=== PATIENT | female | born 2000 | race Caucasian/White ===

== ENCOUNTER 2020-12-07 19:24 | Emergency (ER) | payer SELFPAY ==
[2020-12-07 19:39] VITALS: BP 102/62; PULSE 66; RESP 18; TEMP 37.1; O2SAT 97; BMI 25.9
--- NOTE | 2020-12-07 19:54 | USR_ITS ---
PROCEDURE INFORMATION: Exam: US Abdomen, Limited; Right Upper Quadrant Exam date and time: 12/07/2020 7:54 PM Age: 19 years old Clinical indication: Abdominal pain; Acute; Additional info: Abd pain TECHNIQUE: Imaging protocol: US abdomen. Real time ultrasound with image documentation. Limited exam focused on the right upper quadrant. COMPARISON: No relevant prior studies available. FINDINGS: Liver: The liver is of normal echogenicity measuring 13.8 cm. Gallbladder: Normal. No gallstones. There is no gallbladder wall thickening. Common bile duct: Normal. No stones. No dilation. Pancreas: Visualized pancreas is unremarkable. Right kidney: Normal. No mass. No hydronephrosis. Portal venous: The main portal vein is patent with hepatopetal flow. US/US gall bladder [id number] IMPRESSION: No acute finding.
--- NOTE | 2020-12-07 19:58 | W.ED.ABDPA2 ---
HPI - Abdominal Pain General: Chief Complaint: Abdominal Pain Stated Complaint: Possible Gall Bladder Time Seen by Provider: 12/07/20 19:25 Source: patient Mode of arrival: ambulatory Limitations: no limitations History of Present Illness: HPI narrative: 19-year-old female states that she is been having epigastric right upper quadrant pain since last night. States she ate [employer] last night and has been having the pain since then. States pain sharp in nature and rates it an 8 out of 10. Denies any radiation of her pain. She had no nausea or vomiting. She has no history of gastritis or gallbladder issues in the past. She has had no surgeries before Associated Symptoms: Denies chills, dysuria and fever(s) Related Data: Date of Last Menstrual Period: 11/17/20 Review of Systems Const: Denies: fever(s), chills, body aches or change in appetite Eyes: Denies: blurry vision or eye discomfort ENMT: Denies: throat pain or dental pain Card: Denies: chest pain Resp: Denies: dyspnea GI: Reports: abdominal pain : Denies: dysuria Musc: Denies: neck pain or back pain Skin/Breast: Denies: rash Neuro: Denies: headache(s) Psych: Denies: depression Constantin/Lymph: Denies: easy bruising All/Imm: Denies: urticaria PENDING SALE TO [facility] Female Reproductive History: Date of last menstrual period: 11/17/20 Physical Exam Const: COMMON NORMALS: no acute distress, patient oriented x3 and healthy appearing HENMT: COMMON NORMALS: normocephalic and atraumatic HEAD & SCALP: normocephalic and atraumatic Eye: COMMON NORMALS: Equal, round and reactive pupils present and EOMs intact bilaterally PUPIL: Yes Equal, round and reactive pupils present Neck/C-Spine: COMMON NORMALS: full ROM and supple Chest: COMMONS NORMALS: normal inspection of the chest and normal palpation of entire chest wall Resp: COMMON NORMALS: normal respiratory effort, No retractions, No use of accessory muscles and clear to auscultation bilaterally AUSCULTATION: clear to auscultation bilaterally Cardio: COMMON NORMALS: regular rate, regular rhythm and No murmurs present (Cardio) RATE: regular rate RHYTHM: regular rhythm GI: COMMON NORMALS: Normal to inspection, nondistended, normoactive bowel sounds present, Soft to palpation and no masses PALPATION: Yes Soft to palpation OTHER: epigastric and ruq tenderness Extremity: COMMON NORMALS: normal to inspection and full ROM Neuro: COMMON NORMALS: patient oriented x3, moves all extremities and no focal motor deficits Psych: COMMON NORMALS: mental status grossly normal, Normal thought process present and cooperative THOUGHT PROCESS: Normal thought process present Skin: COMMON NORMALS: no rashes or lesions noted and no wounds GENERAL SKIN EXAM: no rashes or lesions noted Course Vital Signs: Vital signs: Vital Signs Temperature 98.8 F 12/07/20 19:39 Pulse Rate 63 12/07/20 21:47 Respiratory Rate 18 12/07/20 21:47 Blood Pressure 98/56 12/07/20 21:47 Pulse Oximetry 98 12/07/20 21:47 MDM - Abdominal Pain MDM Narrative: Medical decision making narrative: Patient presents with abdominal pain that is likely a gastritis. Patient's blood work and ultrasound here are negative. Vomiting exam at discharge is benign. We will start her on Protonix she is to follow-up with PCP in 2 to 4 days return if worsening. She has no signs of acute surgical abdomen on exam. Lab Data: Labs: Lab Results 12/07/20 12/07/20 12/07/20 Range/Units 20:06 20:06 20:51 WBC 11.7 (4.5-13.0) 10^3/ uL RBC 3.90 L (4.1-5.3) 10^6/u L Hgb 9.3 L (11.5-15.3) g/dL Hct 30.7 L (37.0-47.0) % MCV 78.7 L (81-99) fL MCH 23.8 L (28.0-34.0) pg MCHC 30.3 (30.0-36.0) g/dL RDW 15.2 H (12.1-15.1) % Plt Count 378 (130-400) 10^3/c mm MPV 10.5 H (7.4-10.4) fL Neut % (Auto) 77.0 % Lymph % (Auto) 17.1 % [place] % (Auto) 4.6 % Eos % (Auto) 0.7 % Baso % (Auto) 0.3 % Neut # (Auto) 9.00 H (1.8-8.0) 10^3/u L Lymph # (Auto) 2.0 (1.5-6.5) 10^3/u L [place] # (Auto) 0.5 (0.2-0.9) 10^3/u L Eos # (Auto) 0.1 (0.0-0.8) 10^3/u L Baso # (Auto) 0.0 (0.0-0.1) 10^3/u L Nucleated RBC % (a uto) 0 % Nucleated RBCs # 0.0 /100WBC Sodium 138 (136-145) mmol/L Potassium 4.0 (3.5-5.1) mmol/L Chloride 105 (98-107) mmol/L Carbon Dioxide 21 L (22-29) mmol/L Anion Gap 16.0 (5-19) BUN 7 (6-20) mg/dL Creatinine 0.7 (0.5-0.9) mg/dL GFR Calculation 107.8 (90-130) mL/min Glucose 85 (65-115) mg/dL Calculated Osmolal ity 283 L (285-295) mOsm/k g Calcium 8.6 (8.5-10.5) mg/dL Total Bilirubin 0.4 (0.15-1.2) mg/dL AST 15 (0-32) U/L ALT 11 (0-33) U/L Alkaline Phosphata se 81 (35-105) IU/L Total Protein 6.9 (6.6-8.7) g/dL Albumin 4.2 (3.5-5.2) g/dL Globulin 2.7 (1.3-4.6) g/dL Lipase 14 (13-60) U/L HCG, Qual Negative (Negative) Urine Color (Yellow) Urine Appearance (CLEAR) Urine pH (5-7) Ur Specific Gravit y (1.005-1.030) Urine Protein (Negative) Urine Glucose (UA) (Normal) Urine Ketones (Negative) Urine Blood (Negative) Urine Nitrate (Negative) Urine Bilirubin (Negative) Prot Sulfosalicyli c Acd (Negative) Urine Urobilinogen (Negative) mg/dL Ur Leukocyte Chantelle ase (Negative) Urine RBC (0-2) /hpf Urine WBC (0-5) /hpf Ur Squamous Epith Cells (0-5) /hpf Amorphous Sediment Urine Bacteria (NONE) /hpf Urine Mucus /hpf 12/07/20 Range/Units 20:51 WBC (4.5-13.0) 10^3/ uL RBC (4.1-5.3) 10^6/u L Hgb (11.5-15.3) g/dL Hct (37.0-47.0) % MCV (81-99) fL MCH (28.0-34.0) pg MCHC (30.0-36.0) g/dL RDW (12.1-15.1) % Plt Count (130-400) 10^3/c mm MPV (7.4-10.4) fL Neut % (Auto) % Lymph % (Auto) % [place] % (Auto) % Eos % (Auto) % Baso % (Auto) % Neut # (Auto) (1.8-8.0) 10^3/u L Lymph # (Auto) (1.5-6.5) 10^3/u L [place] # (Auto) (0.2-0.9) 10^3/u L Eos # (Auto) (0.0-0.8) 10^3/u L Baso # (Auto) (0.0-0.1) 10^3/u L Nucleated RBC % (a uto) % Nucleated RBCs # /100WBC Sodium (136-145) mmol/L Potassium (3.5-5.1) mmol/L Chloride (98-107) mmol/L Carbon Dioxide (22-29) mmol/L Anion Gap (5-19) BUN (6-20) mg/dL Creatinine (0.5-0.9) mg/dL GFR Calculation (90-130) mL/min Glucose (65-115) mg/dL Calculated Osmolal ity (285-295) mOsm/k g Calcium (8.5-10.5) mg/dL Total Bilirubin (0.15-1.2) mg/dL AST (0-32) U/L ALT (0-33) U/L Alkaline Phosphata se (35-105) IU/L Total Protein (6.6-8.7) g/dL Albumin (3.5-5.2) g/dL Globulin (1.3-4.6) g/dL Lipase (13-60) U/L HCG, Qual (Negative) Urine Color Yellow (Yellow) Urine Appearance Sl hazy (CLEAR) Urine pH 8 H (5-7) Ur Specific Gravit y 1.005 (1.005-1.030) Urine Protein Neg (Negative) Urine Glucose (UA) Norm (Normal) Urine Ketones 1+ H (Negative) Urine Blood 3+ H (Negative) Urine Nitrate Negative (Negative) Urine Bilirubin Neg (Negative) Prot Sulfosalicyli c Acd Negative (Negative) Urine Urobilinogen Norm (Negative) mg/dL Ur Leukocyte Chantelle ase Trace H (Negative) Urine RBC 10-15 H (0-2) /hpf Urine WBC 40-55 H (0-5) /hpf Ur Squamous Epith Cells 0-4 H (0-5) /hpf Amorphous Sediment Not Reportable Urine Bacteria Trace (NONE) /hpf Urine Mucus Trace /hpf Imaging Data ^: US: Attestation: I personally reviewed and interpreted this imaging study as follows: Radiologist's impression: [address] [address] Ultrasound Report Signed Patient: Leidy Montes Unit #: [id number] : 2000 Age/Sex: 19 / F ADM Date: 12/07/20 Loc: ER Room/Bed: Attending Dr: Ordering Provider/Ordering MD: Ghazal Garcia MD Date of Service: 12/07/20 Procedure(s): US gall bladder 18874 Accession Number(s): [id number] Report Number: [id number] PROCEDURE INFORMATION: Exam: US Abdomen, Limited; Right Upper Quadrant Exam date and time: 12/07/2020 7:54 PM Age: 19 years old Clinical indication: Abdominal pain; Acute; Additional info: Abd pain TECHNIQUE: Imaging protocol: US abdomen. Real time ultrasound with image documentation. Limited exam focused on the right upper quadrant. COMPARISON: No relevant prior studies available. FINDINGS: Liver: The liver is of normal echogenicity measuring 13.8 cm. Gallbladder: Normal. No gallstones. There is no gallbladder wall thickening. Common bile duct: Normal. No stones. No dilation. Pancreas: Visualized pancreas is unremarkable. Right kidney: Normal. No mass. No hydronephrosis. Portal venous: The main portal vein is patent with hepatopetal flow. US/US gall bladder [id number] IMPRESSION: No acute finding. Discharge Plan Discharge Patient Disposition: Home Clinical Impression: Abdominal pain Qualifiers: Abdominal location: epigastric Qualified Code(s): R10.13 - Epigastric pain Condition: Stable Prescriptions: New Protonix 40 mg tablet,delayed release (DR/EC) 40 mg PO DAILY Qty: 60 RF: 0 No Action Pepcid 20 mg Tablet 20 mg PO BID RF: 0 Discharge Orders: Discharge ED (Routine); Ordered 12/07/20 Ordered By: Ghazal Garcia Discharge Diet: Advance as tolerated Discharge Activity: Resume usual activity Patient Instructions: Abdominal Pain (ED) Coding Level of Care Code ED Credit Risk Associate for Katherine Fwd Exam Comprehensive
[2020-12-07 20:16] LABS: Basophils % 0.3 %; Eosinophils # 0.1 10^3/uL (0.0-0.8); Eosinophils % 0.7 %; Hematocrit 30.7 % (37.0-47.0); Hemoglobin 9.3 g/dL (11.5-15.3); Lymphocytes % 17.1 %; Mean Corpuscular HGB Conc 30.3 g/dL (30.0-36.0); Mean Corpuscular Hemoglobin 23.8 pg (28.0-34.0); Mean Corpuscular Volume 78.7 fL (81-99); Mean Platelet Volume 10.5 fL (7.4-10.4); Monocytes # 0.5 10^3/uL (0.2-0.9); Monocytes % 4.6 %; Nucleated Red Blood Cells % 0 %; Platelet Count 378 10^3/cmm (130-400); Red Cell Distribution Width 15.2 % (12.1-15.1); White Blood Count 11.7 10^3/uL (4.5-13.0)
[2020-12-07] MEDS: morphine 4 mg/mL SDV 1 mL IVP (20:29)
[2020-12-07] MEDS: ondansetron 2 mg/ML SDV 2 mL 4 MG IVP (20:29)
[2020-12-07 20:36] LABS: Alanine Aminotransferase 11 U/L (0-33); Albumin Level 4.2 g/dL (3.5-5.2); Alkaline Phosphatase 81 IU/L (35-105); Aspartate Amino Transferase 15 U/L (0-32); Blood Urea Nitrogen 7 mg/dL (6-20); Calcium 8.6 mg/dL (8.5-10.5); Carbon Dioxide 21 mmol/L (22-29); Chloride 105 mmol/L (98-107); Globulin 2.7 g/dL (1.3-4.6); Glomerular Filtration Rate 107.8 mL/min (90-130); Glucose 85 mg/dL (65-115); Lipase 14 U/L (13-60); Osmolality Calculated 283 mOsm/kg (285-295); Sodium 138 mmol/L (136-145); Total Bilirubin 0.4 mg/dL (0.15-1.2); Total Protein 6.9 g/dL (6.6-8.7)
[2020-12-07 21:08] VITALS: PULSE 53; RESP 17; O2SAT 98
[2020-12-07 21:18] LABS: HCG Qualitative Urine. Negative (Negative)
[2020-12-07 21:26] LABS: Urine Appearance SL Hazy (CLEAR); Urine Color Yellow (Yellow)
[2020-12-07 21:27] LABS: Add Urine Culture? Yes; Add Urine Microscopic? YES; Bacteria Urine TRACE /hpf; Bilirubin Urine Neg (Negative); Blood Urine 3+ (Negative); Glucose Urine UA Norm (Normal); Ketones Urine 1+ (Negative); Leukocyte Esterase Urine Trace (Negative); Mucus Urine TRACE /hpf; Nitrate Urine Negative (Negative); Protein Urine Neg (Negative); Specific Gravity, Urine 1.005 (1.005-1.030); Squamous Epithelial Cell Urine 0-4 /hpf (0-5); Urobilinogen Urine Norm (Negative); WBC Urine 40-55 /hpf (0-5); pH Urine 8 (5-7)
[2020-12-07 21:47] VITALS: BP 98/56; PULSE 63; RESP 18; O2SAT 98
[2020-12-07 21:53] LABS: Sulfosalicylic Acid Urine Negative (Negative)
== END 2020-12-07 21:47 | disposition home or self-care (01) ==
PROVIDERS: Emergency Provider Emergency Medicine
DX: R10.13 Epigastric pain (principal)
CPT/HCPCS: 76705; 80053; 81001; 81025; 83690; 85025; 87077; 87086; 87186; 96374; 96375; 99283; J2270; J2405

== ENCOUNTER 2022-10-02 15:36 | Outpatient (CLI) | payer MEDICAID, SELFPAY ==
--- NOTE | 2022-10-02 | US_ITS ---
WS: [id number] EARLY OBSTETRICAL ULTRASOUND (<14 WEEKS). HISTORY: ENCOUNTER FOR SUPERVISION OF NORMAL FIRST , <14 WKS COMPARISON: None available. Single intrauterine gestational sac is identified. Cardiac activity at 141 BPM. [place]-rump length roger sures 6.2 cm which corresponds to a gestation of 12w5d. Normal-appearing yolk sac and amnion demonstr ated. No subchorionic hemorrhage. No free fluid. LEFT ovary is normal. RIGHT ovary is not identified. There is a small cystic area in the posterior uterine wall which may be developing placenta. US/US OB <= 14 weeks fetus [id number] IMPRESSION: 1. Single intrauterine gestation of 12 weeks 5 days with EDC of 04/11/2023. 2. Normal cardiac activity.
== END 2022-10-02 15:37 | disposition home or self-care (01) ==
PROVIDERS: PCP Family Medicine; Visit Provider Family Medicine
DX: Z34.91 Encounter for supervision of normal pregnancy, unspecified, first trimester (principal); Z3A.12 12 weeks gestation of pregnancy
CPT/HCPCS: 76801

== ENCOUNTER 2022-11-13 12:46 | Outpatient (CLI) | payer MEDICAID, SELFPAY ==
--- NOTE | 2022-11-13 12:57 | US_ITS ---
WS: [id number] ULTRASOUND OB COMPLETE TECHNIQUE: Complete ultrasound. CLINICAL INFORMATION: ANATOMY CHECK COMPARISON: 10/02/22 FINDINGS: Cervix appears long and closed 3.32cm. Single interuterine gestation is identified with variable presentation. Placenta is anterior. Placenta grade 0. Normal amniotic fluid volume. cardiac activity: 138 BPM. AGA: 18w5d BRADLY by ultrasound: 04/11/2023 Estimated weight: 256 g; 0 lbs. 9 oz. BDP: 4.1 cm = 18w3d HC: 15.8 cm = 18w5d AC: 13.0 cm = 18w3d FEMUR LENGTH: 3.0 cm = 19w1d Anatomic survey: Anatomic survey is normal. Normal stomach. Kidneys and bladder are normal. Normal 3 vessel cord. Norm al 3 vessel cord insertion. Normal 4 chamber heart and outflow tracts. Normal spine. Intracranial con tents are normal. Normal posterior fossa and cisterna magna. US/US OB >= 14 weeks fetus [id number] IMPRESSION: 1. Single intrauterine with visualized cardiac activity. AGA 18w5d w ith BRADLY 04/11/2023. 2. Placenta is anterior. No evidence of abruption or previa. 3. anatomic survey is normal. 4. Normal amniotic fluid volume.
== END 2022-11-13 12:47 | disposition home or self-care (01) ==
PROVIDERS: PCP Family Medicine; Visit Provider Family Medicine
DX: Z34.02 Encounter for supervision of normal first pregnancy, second trimester (principal); Z3A.18 18 weeks gestation of pregnancy
CPT/HCPCS: 76805

== ENCOUNTER 2023-04-06 01:10 | Inpatient (IN) | payer MEDICAID, SELFPAY ==
[2023-04-05] VITALS (12 sets, daily range): BP systolic 125–148; BP diastolic 78–88; PULSE 67–88; RESP 18; TEMP 36.7; BMI 34.7
[2023-04-05 22:06] LABS: Basophils % 0.2 %; Eosinophils # 0.1 10^3/uL (0.0-0.8); Eosinophils % 0.7 %; Hematocrit 25.5 % (36-47); Lymphocytes # 2.1 10^3/uL (0.8-4.8); Lymphocytes % 18.2 %; Mean Corpuscular HGB Conc 27.8 g/dL (30-55); Mean Corpuscular Hemoglobin 19.8 pg (27-33); Mean Corpuscular Volume 71.2 fl (85-98); Mean Platelet Volume 11.8 fL (7.4-10.4); Monocytes # 0.5 10^3/uL (0.2-0.9); Monocytes % 4.5 %; Neutrophils # 8.57 10^3/uL (1.8-7.7); Neutrophils % 75.3 %; Nucleated Red Blood Cells # 0.1 /100WBC; Nucleated Red Blood Cells % 1.1 %; Platelet Count 260 10^3/cmm (157-399); Red Blood Count 3.58 10^6/uL (3.85-5.65); White Blood Count 11.38 10^3/uL (3.29-11.43)
[2023-04-05] MEDS: dextrose 5%-lactated ringers 1,000 ML 125 ML IV (23:08)
[2023-04-05] MEDS: oxytocin 30 UNIT/500 ML BAG IV (23:29)
[2023-04-06] VITALS (112 sets, daily range): BP systolic 109–170; BP diastolic 59–102; PULSE 57–104; TEMP 36.4–37.4; O2SAT 99–100
[2023-04-06 01:18] LABS: Amphetamines Screen Urine Negative (Negative); Barbiturates Screen Urine Negative (Negative); Benzodiazepines Screen Urine Negative (Negative); Cocaine Screen Urine Negative (Negative); Opiate Screen Urine Negative (Negative); PCP Screen Urine Negative (Negative); THC Screen Urine Negative (Negative)
[2023-04-06] MEDS: lactated ringers 1,000 ML 999 ML IV (04:01)
--- NOTE | 2023-04-06 05:44 | ANES.PREANE2 ---
Pre-Anesthetic Assessment Height/Weight: Height 1.68 m Weight 97.522 kg Temp Pulse Resp BP Pulse Ox O2 Del Method 98.0 F 67 18 137/72 100 Room Air 04/05/23 21:29 04/06/23 05:41 04/05/23 21:29 04/06/23 05:41 04/06/23 05:38 04/05/23 19:56 Familial anesthetic complications: none Was Beta Ros taken within 24 hours: N/A Was Clonidine taken within 24 hours: N/A Social No alcohol and No tobacco Exam alert, oriented x 3, clear to auscultation bilaterally and regular rate & rhythm Airway Submandibular: within normal limits Cervical ROM: within normal limits Mallampati: Class II Dentition: full History/ROS No significant history except as noted Anesthetic Plan ASA status: 2 Anesthesia: Regional (specify below) (Labor Epidural) Medications/Allergies Allergies Allergy/AdvReac Type Severity Reaction Status Date / Time mushroom Allergy ALGY-Anaphy Verified 04/05/23 21:45 laxis Current Medications Generic Name Dose Route Start Last Admin Trade Name Freq PRN Reason Stop Dose Admin Dextrose/Lactated Ringer's 1,000 mls @ 125 mls/hr 04/05/23 21:30 04/06/23 05:11 Dextrose 5%-Lactated Ringers IV 125 mls/hr .Q8H SYLWIA Infusion Oxytocin 30 unit in 500 mls @ 1 mls/hr 04/05/23 21:45 04/06/23 03:35 Pitocin IV 5 milliunit/min .Q24H SYLWIA 5 mls/hr Titration Protocol 1 MILLIUNIT/MIN Lactated Ringer's 1,000 mls @ 999 mls/hr 04/06/23 03:58 04/06/23 04:01 Lactated Ringers IV 999 mls/hr .Q1H1M PRN Administration See label comments PFSH Anesthesia Female Reproductive History Date of last menstrual period: 07/11/22 : 1 Data Anesthesia 04/05/23 21:58 Short CBC 04/05/23 Range/Units 21:58 WBC 11.38 (3.29-11.43) 10^3/uL Hgb 7.10 L (11.27-16.99) g/dL Hct 25.5 L (36-47) % MCV 71.2 L (85-98) fl Plt Count 260 (157-399) 10^3/cmm Neut % (Auto) 75.3 % Neut # (Auto) 8.57 H (1.8-7.7) 10^3/uL Blood Bank 04/05/23 21:58 Blood Type O Positive Rho(D) Type Rh positive Antibody Screen Negative Cardiac Studies: No Data to Display Anesthesia Procedures Epidural Time Out Performed: Yes Consents Signed: Procedure Consent Consent: requested by attending/covering physician, from patient, risks and benefits reviewed and patient agrees to proceed Lumbar Level: L3-L4 Epidural position: sitting Epidural procedure: sterile prep of area, 1% lidocaine to numb the area, 18 g needle, neg for paresthesia, test dose given, 1.5% xylocaine 1:200k epi (3mls), placed PCEA, no systemic response, sterile dressing applied and 0.2% Ropiavacaine @ mls/hr (10) Additional Comments: ALEXANDRU at 6cm, cath at 10cm, bolused 5mls of 2% lido
[2023-04-06] MEDS: ROPivacaine syringe 100 MG/50 ML SYRINGE 10 MG EPIDURAL ×4 (05:49→18:12)
[2023-04-06] MEDS: dextrose 5%-lactated ringers 1,000 ML 116 ML IV (08:48)
[2023-04-06] MEDS: dextrose 5%-lactated ringers 1,000 ML 107 ML IV (17:50)
--- NOTE | 2023-04-06 18:55 | PC.NURSE ---
Dressing reinforced with tegaderm at this time.
[2023-04-06] MEDS: miSOPROStol 200 mcg Tablet 800 MCG PR (21:42)
[2023-04-06] MEDS: oxytocin 30 UNIT/500 ML BAG 600 UNIT IV (21:56)
--- NOTE | 2023-04-06 22:07 | PM.OPHPUD ---
Labor & Delivery H&P Update Date of Procedure: April 06, 2023 Date H&P Performed: 04/03/23 Admission Diagnosis: IUP at 39 weeks 2 days gestation Primary indication for procedure: Pt requested induction Planned procedure: Induction of labor and delivery
--- NOTE | 2023-04-06 22:10 | P.PCNOB_ITS ---
Delivery Note: Date of delivery: April 06, 2023 Procedure: Normal spontaneous vaginal delivery Pre-Delivery Course: The patient had routine care at [facility]. Blood type O+ antibody negative, hepatitis B nonreactive hepatitis C nonreactive, HIV nonreactive, rubella immune, GC chlamydia negative, RPR nonreactive, she passed her glucose tolerance test, she was GBS negative. Delivery: This is a 22-year-old G1, P0 at 39 weeks 2 days gestation who is here for a requested induction. Her cervix was favorable and she was started on low-dose Pitocin. She received an epidural for pain management. She had artificial rupture of membranes. She had a normal spontaneous vaginal delivery of a viable male infant weight 3680 g, 8 pounds 2 ounces, Apgars 8 and 9 over an intact perineum. The was suctioned at delivery and placed on the mother's chest. The cord was clamped and cut. Cord blood was obtained. The placenta was delivered grossly intact and normal to inspection. There was a first-degree vaginal laceration on the right that was sutured using 3-0 chromic. There was a first-degree labia minora laceration that was sutured on the left. Estimated blood loss 250 mL. Mother was doing well after delivery. Coding Level of Care Code Acute Code for Chg Fwd Diagnoses
[2023-04-06] MEDS: benzocaine-menthol 78 gm Canister 1 SPRAY TOPICAL (23:41)
[2023-04-06] MEDS: ibuprofen 800 mg tablet PO (23:41)
[2023-04-07] VITALS (8 sets, daily range): BP systolic 123–164; BP diastolic 70–93; PULSE 70–90; RESP 14–18; TEMP 36.6–36.8; O2SAT 98–100
--- NOTE | 2023-04-07 06:08 | ANE.PACU2 ---
Inpatient post-anesthesia follow up: Airway intact: Yes Vital signs: Temperature 99.1 F Pulse Rate 88 Respiratory Rate 18 Blood Pressure 153/80 Pulse Oximetry 99 Oxygen Delivery Me thod Room Air Oxygen Flow Rate Fraction of Inspir ed Oxygen Hydration adequate: Yes Nausea and vomiting: No Pain level: 2 Mental status: Baseline Additional Comments: Anes start 04/06/23 0500 Anes end 04/06/23 1054
[2023-04-07] MEDS: prenatal vitamin Capsule 1 CAP PO (08:23)
[2023-04-07] MEDS: docusate sodium 100 mg Capsule PO ×2 (08:23→20:20)
[2023-04-07] MEDS: ferrous sulfate EC 325 mg Tablet PO (08:23)
[2023-04-07] MEDS: ibuprofen 800 mg tablet PO ×3 (08:23→20:20)
[2023-04-07 09:45] LABS: Hematocrit 23.5 % (36-47); Mean Corpuscular HGB Conc 28.1 g/dL (30-55); Mean Corpuscular Hemoglobin 19.9 pg (27-33); Mean Platelet Volume 11.6 fL (7.4-10.4); Platelet Count 241 10^3/cmm (157-399); Red Blood Count 3.31 10^6/uL (3.85-5.65); White Blood Count 15.94 10^3/uL (3.29-11.43)
--- NOTE | 2023-04-07 18:42 | P.PN_ITS ---
Subjective Subjective: Mother states she is doing well. She states that her bleeding has decreased a lot. Vitals/I&O/Wt Last Vital Signs Temp 98.0 F 04/07/23 16:44 Pulse 73 04/07/23 16:44 Resp 16 04/07/23 16:44 BP 138/93 04/07/23 16:44 Pulse Ox 99 04/07/23 16:44 O2 Del Method Room Air 04/07/23 16:44 Weight last 48 hrs Weight 97.522 kg Physical Exam Narrative: Alert and oriented, sitting up in bed, heart regular rate and rhythm, lungs clear to auscultation bilaterally, abdomen is soft and nontender, fundus is firm and U -1, extremities have edema but no calf tenderness Urinary Catheter Management: Rodriguez: Cath Placed During This Visit: yes, but has since been removed by the nurse Reason for Continuing Indwelling Catheter: Decision to DC Catheter Urinary Catheter Date of Insertion: 04/06/23 Urinary Catheter Time of Insertion: 06:24 Date Urinary Catheter Removed: 04/06/23 Time Urinary Catheter Discontinued: 20:43 Data 04/07/23 09:34 A&P Assessment and plan (1) Normal spontaneous vaginal delivery: Routine care (2) Anemia: Patient's hemoglobin on admission was 7.1. She has not had any excessive bleeding in her 12-hour H&H was 6.60. continue to monitor her bleeding overnigh t Attestations Medical Necessity Statement*: Routine care Coding Level of Care Code Acute Code for Chg Fwd Diagnoses Normal spontaneous vaginal delivery O80 Anemia D64.9
[2023-04-08 04:15] VITALS: BP 127/72; PULSE 76; RESP 16; O2SAT 100
[2023-04-08] MEDS: ibuprofen 800 mg tablet PO (08:30)
[2023-04-08] MEDS: ferrous sulfate EC 325 mg Tablet PO (08:30)
[2023-04-08] MEDS: docusate sodium 100 mg Capsule PO (08:30)
[2023-04-08] MEDS: prenatal vitamin Capsule 1 CAP PO (08:30)
[2023-04-08 09:10] VITALS: BP 141/79; PULSE 90; RESP 17; O2SAT 99
--- NOTE | 2023-04-08 10:48 | PM.DCS ---
Discharge Providers Date of Admission: 04/06/23 01:10 Date of Discharge: April 08, 2023 Attending Provider at Admission: Rosita Crowell MD Attending Provider at Discharge: Rosita Crowell MD Primary Care Provider: Kirsten Ha DO Diagnoses at Discharge Discharge Diagnosis (1) Normal spontaneous vaginal delivery: Status: Acute (2) Anemia: Status: Acute Reason for Visit Reason for Visit: IOL Hospital Course Hospital Course This is a 22-year-old G1 now P1 who was admitted for an elective induction. She had a normal spontaneous vaginal delivery of a viable male . Mother and did well after delivery. She was ambulating, tolerating a regular diet, and had good pain control. Of note her hemoglobin was low upon admission at 7.1. Her hemoglobin was 6.6 and she was asymptomatic. She will be sent home on oral iron supplementation Physical Exam Narrative: Alert and oriented, sitting up in bed, heart regular rate and rhythm, lungs clear to auscultation bilaterally, abdomen soft and nontender, fundus firm and U -2, extremities do have edema but no calf tenderness. Urinary Catheter Management: Rodriguez: Cath Placed During This Visit: yes, but has since been removed by the nurse Reason for Continuing Indwelling Catheter: Decision to DC Catheter Urinary Catheter Date of Insertion: 04/06/23 Urinary Catheter Time of Insertion: 06:24 Date Urinary Catheter Removed: 04/06/23 Time Urinary Catheter Discontinued: 20:43 Discharge Data Studies Completed and Pending Pending at discharge Category Date Time Status Leukocyte Reduced RBC Routine Lab 04/06/23 07:33 Results Type and Screen Routine Lab 04/05/23 21:58 Results Laboratory Results WBC 15.94 10^3/uL (3.29-11.43) H 04/07/23 09:34 RBC 3.31 10^6/uL (3.85-5.65) L 04/07/23 09:34 Hgb 6.60 g/dL (11.27-16.99) L 04/07/23 09:34 Hct 23.5 % (36-47) L 04/07/23 09:34 MCV 71.0 fl (85-98) L 04/07/23 09:34 MCH 19.9 pg (27-33) L 04/07/23 09:34 MCHC 28.1 g/dL (30-55) L 04/07/23 09:34 RDW 19.0 % (12.1-15.1) H 04/07/23 09:34 Plt Count 241 10^3/cmm (157-399) 04/07/23 09:34 MPV 11.6 fL (7.4-10.4) H 04/07/23 09:34 Neut % (Auto) 75.3 % 04/05/23 21:58 Lymph % (Auto) 18.2 % 04/05/23 21:58 [place] % (Auto) 4.5 % 04/05/23 21:58 Eos % (Auto) 0.7 % 04/05/23 21:58 Baso % (Auto) 0.2 % 04/05/23 21:58 Neut # (Auto) 8.57 10^3/uL (1.8-7.7) H 04/05/23 21:58 Lymph # (Auto) 2.1 10^3/uL (0.8-4.8) 04/05/23 21:58 [place] # (Auto) 0.5 10^3/uL (0.2-0.9) 04/05/23 21:58 Eos # (Auto) 0.1 10^3/uL (0.0-0.8) 04/05/23 21:58 Baso # (Auto) 0.0 10^3/uL (0.0-0.1) 04/05/23 21:58 Nucleated RBC % (auto) 1.1 % 04/05/23 21:58 Nucleated RBCs # 0.1 /100WBC 04/05/23 21:58 Urine Opiates Screen Negative ng/mL (Negative) 04/06/23 01:03 Ur Barbiturates Screen Negative ng/mL (Negative) 04/06/23 01:03 Ur Phencyclidine Scrn Negative ng/mL (Negative) 04/06/23 01:03 Ur Amphetamines Screen Negative ng/mL (Negative) 04/06/23 01:03 U Benzodiazepines Scrn Negative ng/mL (Negative) 04/06/23 01:03 Urine Cocaine Screen Negative ng/mL (Negative) 04/06/23 01:03 U Marijuana (THC) Screen Negative ng/mL (Negative) 04/06/23 01:03 Blood Type O Positive 04/05/23 21:58 Rho(D) Type Rh positive 04/05/23 21:58 Antibody Screen Negative 04/05/23 21:58 Crossmatch See Detail 04/05/23 21:58 Vitals Last Vital Signs Temp 98.0 F 04/07/23 16:44 Pulse 90 04/08/23 09:10 Resp 17 04/08/23 09:10 BP 141/79 04/08/23 09:10 Pulse Ox 99 04/08/23 09:10 O2 Del Method Room Air 04/08/23 09:10 Discharge Plan Discharge Patient Disposition: Home Condition: Stable Prescriptions: New ferrous sulfate 325 mg (65 mg iron) Tablet,Delayed Release (Dr/Ec) 325 mg PO DAILY Qty: 30 2RF Discharge Orders: Discharge Order (Routine); Ordered 04/08/23 Ordered By: Rosita Crowell Referrals: Rosita Crowell MD [Physician] - 1 month Discharge Diet: Usual diet Discharge Activity: Limit activity as instructed Patient Instructions: Preeclampsia and Eclampsia After Delivery (GEN), OB Discharge Report, OB Food/Drug Interaction Guide, OB Home Care Instructions, OB Care at Home, Opioid Safety, OB Home Care, OB Proud Parent Packet Discharge Attestations Time Spent in Discharge Care*: less than 30 min Quality Metrics Clinical Quality Measures [ No reported AMI, CVA or VTE this stay] Coding Level of Care Code Acute Code for Chg Fwd Diagnoses Normal spontaneous vaginal delivery O80 Anemia D64.9
[2023-04-08 12:10] VITALS: BP 134/72; PULSE 76; RESP 17; TEMP 36.7; O2SAT 99
[2023-04-08] MEDS: acetaminophen 325 mg Tablet 650 MG PO (12:35)
[2023-04-08 12:45] VITALS: BP 134/72; PULSE 76; RESP 17; TEMP 36.7; O2SAT 99
== END 2023-04-08 12:45 | disposition home or self-care (01) | DRG 806 ==
LOC: OBGYN 01:13 → OPOB 11:17
PROVIDERS: Admitting Provider Family Medicine; PCP Family Medicine; Visit Provider Family Medicine
DX: O99.02 Anemia complicating childbirth (principal); O72.1 Other immediate postpartum hemorrhage; Z37.0 Single live birth; D64.9 Anemia, unspecified; Z3A.39 39 weeks gestation of pregnancy; O70.0 First degree perineal laceration during delivery
CPT/HCPCS: 36415; 51702; 59025; 59409; 80306; 85025; 85027; 86850; 86900; 86920; J2590; J2795; J7120; J7121

== ENCOUNTER 2023-04-10 14:51 | Emergency (ER) | payer MEDICAID, SELFPAY ==
[2023-04-10 15:11] VITALS: BP 139/83; PULSE 90; RESP 17; TEMP 36.9; O2SAT 100; BMI 31.0
--- NOTE | 2023-04-10 15:29 | W.ED.HA ---
Documented by User: Francois Rangel DO 04/11/23 06:02 HPI - Headache General: Chief Complaint: Headache Stated Complaint: dr crowell sent over, possible spinal leak post Time Seen by Provider: 04/10/23 15:25 Source: patient Mode of arrival: ambulatory History of Present Illness: 22-year-old female presents to the emergency room with complaint of headache. She is 4 days vaginal delivery which she had a epidural for pain control. She has a headache that is worse when she stands or sits and is significantly improved with laying down particularly on her right side. Its been making her nauseous as well. 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 MD elicited complaint: headache Onset (ago): day(s) Onset description: gradually Location: occipital Quality & Timing: throbbing Exacerbating factors: sitting/standing Relieving factors: other (Lying on the right side) Associated symptoms: Deny chest pain, confusion, cough, diaphoresis, eye pain, eye redness, fever(s), lightheadedness, loss of vision, malaise, nausea, neck stiffness, numbness, paresthesias, photophobia, pre-syncope, rash, seizures, short of breath, sound sensitivity, syncope, vomiting or weakness Review of Systems Const: Denies: fever(s), malaise or diaphoresis Card: Denies: chest pain, lightheadedness, syncope or pre-syncope Resp: Denies: dyspnea GI: Denies: nausea or vomiting : Denies: dysuria, urinary frequency or urinary urgency Musc: Denies: neck pain or back pain Skin/Breast: Denies: rash Neuro: Denies: confusion Physical Exam Const: COMMON NORMALS: no acute distress GENERAL APPEARANCE: cooperative and comfortable ORIENTATION/CONSCIOUSNESS: Yes awake, Yes oriented to person, Yes oriented to place and Yes oriented to time HENMT: COMMON NORMALS: normocephalic, atraumatic and hearing grossly normal bilaterally HEAD & SCALP: normocephalic and atraumatic Eye: DIRECT OPHTHALMOSCOPY: No photophobia Resp: COMMON NORMALS: normal respiratory effort, No retractions, No use of accessory muscles and clear to auscultation bilaterally AUSCULTATION: clear to auscultation bilaterally Cardio: COMMON NORMALS: regular rate, regular rhythm and No murmurs present (Cardio) RATE: regular rate RHYTHM: regular rhythm GI: COMMON NORMALS: Soft to palpation and No hepatosplenomegaly present AUSCULTATION: Yes normoactive bowel sounds PALPATION: Yes Soft to palpation, No Tenderness to palpation present (GI), No Guarding due to palpation present (GI) and Yes No hepatosplenomegaly present Extremity: COMMON NORMALS: normal to inspection, capillary refill normal, no clubbing, cyanosis or edema, no calf tenderness and no pedal edema Neuro: SENSORIUM/ORIENTATION: Yes oriented to person, Yes oriented to place and Yes oriented to time Skin: COMMON NORMALS: no rashes or lesions noted GENERAL SKIN EXAM: no rashes or lesions noted Course Vital Signs: Vital signs: Vital Signs Temperature 98.5 F 04/10/23 19:18 Pulse Rate 110 H 04/10/23 19:18 Respiratory Rate 17 04/10/23 19:18 Blood Pressure 146/102 04/10/23 19:18 Pulse Oximetry 100 04/10/23 19:18 Oxygen Delivery Me thod Room Air 04/10/23 18:05 MDM - Headache Medical Decision Making Patient presents with post spinal tap headache. Dr. Randhawa from anesthesiology consulted and applied a blood patch she still has a headache and blood pressure is markedly elevated. Discussed with her primary care telecommunications analyst she has not had any -induced hypertension or preeclampsia preeclampsia labs done we will continue to have her rest supine. Labs are pending. Care signed out to Dr. Garcia at change of shift. See final notes for diagnosis and disposition. Patient presents with headache along with hypertension. Headaches likely post dural headache her headache has improved here she does have a mild leukocytosis she had no fever I did examine her she has no neck stiffness or tenderness no signs of meningitis her blood pressure here is improved no signs of preeclampsia we will start her on metoprolol along with Naprosyn she is to follow-up with her PCP in 3 to 5 days I did inform her if she has worsening headache or fever she is to return immediately she understands agrees to plan. Lab Data 04/10/23 16:26 04/10/23 16:26 Laboratory Results WBC 18.34 10^3/uL (3.29-11.43) H 04/10/23 16:26 RBC 3.61 10^6/uL (3.85-5.65) L 04/10/23 16:26 Hgb 7.30 g/dL (11.27-16.99) L 04/10/23 16: Hct 26.7 % (36-47) L 04/10/23 16: MCV 74.0 fl (85-98) L 04/10/23 16: MCH 20.2 pg (27-33) L 04/10/23 16: MCHC 27.3 g/dL (30-55) L 04/10/23 16: RDW 21.3 % (12.1-15.1) H 04/10/23 16: Plt Count 419 10^3/cmm (157-399) H 04/10/23 16: MPV 11.3 fL (7.4-10.4) H 04/10/23 16: Neut % (Auto) 83.4 % 04/10/23 16: Lymph % (Auto) 8.9 % 04/10/23 16: [place] % (Auto) 3.9 % 04/10/23 16: Eos % (Auto) 2.1 % 04/10/23 16: Baso % (Auto) 0.3 % 04/10/23 16: Neut # (Auto) 15.30 10^3/uL (1.8-7.7) H 04/10/23 16: Lymph # (Auto) 1.6 10^3/uL (0.8-4.8) 04/10/23 16: [place] # (Auto) 0.7 10^3/uL (0.2-0.9) 04/10/23 16: Eos # (Auto) 0.4 10^3/uL (0.0-0.8) 04/10/23 16: Baso # (Auto) 0.1 10^3/uL (0.0-0.1) 04/10/23 16: Nucleated RBC % (auto) 0.6 % 04/10/23 16: Nucleated RBCs # 0.1 /100WBC 04/10/23 16: Sodium 141 mmol/L (136-145) 04/10/23 16: Potassium 3.6 mmol/L (3.5-5.1) 04/10/23 16:26 Chloride 106 mmol/L (98-107) 04/10/23 16:26 Carbon Dioxide 24 mmol/L (22-29) 04/10/23 16:26 Anion Gap 14.6 (5-19) 04/10/23 16:26 BUN 5 mg/dL (6-20) L 04/10/23 16:26 Creatinine 0.6 mg/dL (0.5-0.9) 04/10/23 16:26 GFR Calculation 125.0 mL/min (90-130) 04/10/23 16:26 Glucose 78 mg/dL (65-115) 04/10/23 16:26 Calculated Osmolality 288 mOsm/kg (285-295) 04/10/23 16:26 Calcium 8.7 mg/dL (8.5-10.5) 04/10/23 16:26 Total Bilirubin 0.3 mg/dL (0.15-1.2) 04/10/23 16:26 AST 21 U/L (0-32) 04/10/23 16:26 ALT 40 U/L (0-33) H 04/10/23 16:26 Alkaline Phosphatase 181 U/L (35-105) H 04/10/23 16:26 Total Protein 6.9 g/dL (6.6-8.7) 04/10/23 16:26 Albumin 3.5 g/dL (3.5-5.2) 04/10/23 16:26 Globulin 3.4 g/dL (1.3-4.6) 04/10/23 16:26 Urine Color Red (Yellow) A 04/10/23 17:50 Urine Appearance Cloudy (CLEAR) A 04/10/23 17:50 Urine pH 6 (5-7) 04/10/23 17:50 Ur Specific [place] 1.015 (1.005-1.030) 04/10/23 17:50 Urine Protein 1+ (Negative) H 04/10/23 17:50 Urine Glucose (UA) Norm (Normal) 04/10/23 17:50 Urine Ketones Negative (Negative) 04/10/23 17:50 Urine Blood 3+ (Negative) H 04/10/23 17:50 Urine Nitrate Negative (Negative) 04/10/23 17:50 Urine Bilirubin Neg (Negative) 04/10/23 17:50 Urine Urobilinogen Norm mg/dL (Negative) 04/10/23 17:50 Ur Leukocyte Esterase 2+ (Negative) H 04/10/23 17:50 Urine RBC 50-80 /hpf (0-2) H 04/10/23 17:50 Urine WBC 25-40 /hpf (0-5) H 04/10/23 17:50 Ur Squamous Epith Cells 0-4 /hpf (0-5) H 04/10/23 17:50 Ur Transition Epith Cell 0-4 /hpf 04/10/23 17:50 Amorphous Sediment Not Reportable 04/10/23 17:50 Urine Bacteria Trace /hpf (NONE) 04/10/23 17:50 Urine Mucus 1+ /hpf 04/10/23 17:50 Discharge Plan Discharge Patient Disposition: Home Clinical Impression: Spinal puncture headache, Hypertension Condition: Stable Prescriptions: New metoprolol succinate 25 mg tablet extended release 24 hr 25 mg PO DAILY Qty: 30 0RF hydrocodone-acetaminophen 5-325 mg tablet 1 tab PO Q6H PRN (Reason: pain) Qty: 8 0RF Naprosyn 500 mg tablet 500 mg PO BID PRN (Reason: pain) Qty: 20 0RF No Action Tylenol Ex Str Rapid Release 500 mg Tablet 1,000 mg PO Q6H PRN (Reason: Pain) Midol 500-25 mg Tablet 2 tab PO Q6H PRN (Reason: Pain) ibuprofen 200 mg Tablet 600 mg PO Q6H PRN (Reason: Pain) Multivitamins 28 mg iron- 800 mcg Tablet 1 tab PO DAILY Discharge Orders: Discharge ED (Routine); Ordered 04/10/23 Ordered By: Francois Rangel Referrals: Rosita Crowell MD [Primary Care Provider] - Discharge Diet: Low Cholesterol Patient Instructions: Opioid Safety, Pain Management Activity Restrictions/Additional Instructions: Thank you for choosing [facility] for your healthcare needs today. Please realize this is an emergency room and that we are providing you with a medical screening exam and this may not be complete and all inclusive of all the testing and or work up that you may need to determine your ailment or severity of your illness. It is very important that you follow up as instructed or that you return to the Emergency Department should you have concerns or if your condition changes or worsens in any way. You were seen today for post spinal tap headache. The blood patch that Dr. Randhawa placed should relieve the symptoms. Avoid any heavy lifting for the next 12 to 24 hours. Return to your primary care doctor if you have further problems. Coding Level of Care Code ED Steam Press Operator for Chg Fwd Documented by User: Ghazal Garcia MD 04/10/23 19:03 HPI - Headache General: Chief Complaint: Headache Stated Complaint: dr crowell sent over, possible spinal leak post Time Seen by Provider: 04/10/23 15:25 Course Vital Signs: Vital signs: Vital Signs Temperature 98.5 F 04/10/23 19:18 Pulse Rate 110 H 04/10/23 19:18 Respiratory Rate 17 04/10/23 19:18 Blood Pressure 146/102 04/10/23 19:18 Pulse Oximetry 100 04/10/23 19:18 Oxygen Delivery Me thod Room Air 04/10/23 18:05 MDM - Headache Medical Decision Making Patient presents with headache along with hypertension. Headaches likely post dural headache her headache has improved here she does have a mild leukocytosis she had no fever I did examine her she has no neck stiffness or tenderness no signs of meningitis her blood pressure here is improved no signs of preeclampsia we will start her on metoprolol along with Naprosyn she is to follow-up with her PCP in 3 to 5 days I did inform her if she has worsening headache or fever she is to return immediately she understands agrees to plan. Medical Records I reviewed the patient's medical records. Lab Data I reviewed the patient's lab results. 04/10/23 16:26 04/10/23 16:26 Laboratory Results WBC 18.34 10^3/uL (3.29-11.43) H 04/10/23 16:26 RBC 3.61 10^6/uL (3.85-5.65) L 04/10/23 16:26 Hgb 7.30 g/dL (11.27-16.99) L 04/10/23 16:26 Hct 26.7 % (36-47) L 04/10/23 16: MCV 74.0 fl (85-98) L 04/10/23 16: MCH 20.2 pg (27-33) L 04/10/23 16: MCHC 27.3 g/dL (30-55) L 04/10/23 16: RDW 21.3 % (12.1-15.1) H 04/10/23 16:26 Plt Count 419 10^3/cmm (157-399) H 04/10/23 16: MPV 11.3 fL (7.4-10.4) H 04/10/23 16:26 Neut % (Auto) 83.4 % 04/10/23 16: Lymph % (Auto) 8.9 % 04/10/23 16: [place] % (Auto) 3.9 % 04/10/23 16: Eos % (Auto) 2.1 % 04/10/23 16: Baso % (Auto) 0.3 % 04/10/23 16: Neut # (Auto) 15.30 10^3/uL (1.8-7.7) H 04/10/23 16:26 Lymph # (Auto) 1.6 10^3/uL (0.8-4.8) 04/10/23 16: [place] # (Auto) 0.7 10^3/uL (0.2-0.9) 04/10/23 16: Eos # (Auto) 0.4 10^3/uL (0.0-0.8) 04/10/23 16: Baso # (Auto) 0.1 10^3/uL (0.0-0.1) 04/10/23 16: Nucleated RBC % (auto) 0.6 % 04/10/23 16: Nucleated RBCs # 0.1 /100WBC 04/10/23 16: Sodium 141 mmol/L (136-145) 04/10/23 16: Potassium 3.6 mmol/L (3.5-5.1) 04/10/23 16: Chloride 106 mmol/L (98-107) 04/10/23 16: Carbon Dioxide 24 mmol/L (22-29) 04/10/23 16:26 Anion Gap 14.6 (5-19) 04/10/23 16:26 BUN 5 mg/dL (6-20) L 04/10/23 16:26 Creatinine 0.6 mg/dL (0.5-0.9) 04/10/23 16:26 GFR Calculation 125.0 mL/min (90-130) 04/10/23 16:26 Glucose 78 mg/dL (65-115) 04/10/23 16:26 Calculated Osmolality 288 mOsm/kg (285-295) 04/10/23 16:26 Calcium 8.7 mg/dL (8.5-10.5) 04/10/23 16:26 Total Bilirubin 0.3 mg/dL (0.15-1.2) 04/10/23 16:26 AST 21 U/L (0-32) 04/10/23 16:26 ALT 40 U/L (0-33) H 04/10/23 16:26 Alkaline Phosphatase 181 U/L (35-105) H 04/10/23 16:26 Total Protein 6.9 g/dL (6.6-8.7) 04/10/23 16:26 Albumin 3.5 g/dL (3.5-5.2) 04/10/23 16:26 Globulin 3.4 g/dL (1.3-4.6) 04/10/23 16:26 Urine Color Red (Yellow) A 04/10/23 17:50 Urine Appearance Cloudy (CLEAR) A 04/10/23 17:50 Urine pH 6 (5-7) 04/10/23 17:50 Ur Specific [place] 1.015 (1.005-1.030) 04/10/23 17:50 Urine Protein 1+ (Negative) H 04/10/23 17:50 Urine Glucose (UA) Norm (Normal) 04/10/23 17:50 Urine Ketones Negative (Negative) 04/10/23 17:50 Urine Blood 3+ (Negative) H 04/10/23 17:50 Urine Nitrate Negative (Negative) 04/10/23 17:50 Urine Bilirubin Neg (Negative) 04/10/23 17:50 Urine Urobilinogen Norm mg/dL (Negative) 04/10/23 17:50 Ur Leukocyte Esterase 2+ (Negative) H 04/10/23 17:50 Urine RBC 50-80 /hpf (0-2) H 04/10/23 17:50 Urine WBC 25-40 /hpf (0-5) H 04/10/23 17:50 Ur Squamous Epith Cells 0-4 /hpf (0-5) H 04/10/23 17:50 Ur Transition Epith Cell 0-4 /hpf 04/10/23 17:50 Amorphous Sediment Not Reportable 04/10/23 17:50 Urine Bacteria Trace /hpf (NONE) 04/10/23 17:50 Urine Mucus 1+ /hpf 04/10/23 17:50 No radiology studies performed this visit Discharge Plan Discharge Patient Disposition: Home Clinical Impression: Spinal puncture headache, Hypertension Condition: Stable Prescriptions: New metoprolol succinate 25 mg tablet extended release 24 hr 25 mg PO DAILY Qty: 30 0RF hydrocodone-acetaminophen 5-325 mg tablet 1 tab PO Q6H PRN (Reason: pain) Qty: 8 0RF Naprosyn 500 mg tablet 500 mg PO BID PRN (Reason: pain) Qty: 20 0RF No Action Tylenol Ex Str Rapid Release 500 mg Tablet 1,000 mg PO Q6H PRN (Reason: Pain) Midol 500-25 mg Tablet 2 tab PO Q6H PRN (Reason: Pain) ibuprofen 200 mg Tablet 600 mg PO Q6H PRN (Reason: Pain) Multivitamins 28 mg iron- 800 mcg Tablet 1 tab PO DAILY Discharge Orders: Discharge ED (Routine); Ordered 04/10/23 Ordered By: Francois Rangel Referrals: Rosita Crowell MD [Primary Care Provider] - Discharge Diet: Low Cholesterol Patient Instructions: Opioid Safety, Pain Management Activity Restrictions/Additional Instructions: Thank you for choosing [facility] for your healthcare needs today. Please realize this is an emergency room and that we are providing you with a medical screening exam and this may not be complete and all inclusive of all the testing and or work up that you may need to determine your ailment or severity of your illness. It is very important that you follow up as instructed or that you return to the Emergency Department should you have concerns or if your condition changes or worsens in any way. You were seen today for post spinal tap headache. The blood patch that Dr. Randhawa placed should relieve the symptoms. Avoid any heavy lifting for the next 12 to 24 hours. Return to your primary care doctor if you have further problems. Coding Level of Care Code ED Steam Press Operator for Katherine Lees
--- NOTE | 2023-04-10 16:24 | ANES.PAUD2 ---
Pre-Anesthetic Update Pre-Anesthetic Assessment: Date of Surgery/Procedure: 04/10/23 Proposed Procedure: Epidural Blood Patch Any changes to Pre-Anesthetic Assessment?: Yes Changes from Pre-Anesthetic Assessment: patient presents with classic signs of postdural puncture headache, ie.postural headache. Patient elected to have blood patch performed Vitals: Temperature 98.5 F 04/10/23 15:11 Temperature Source Oral 04/10/23 15:11 Pulse Rate 90 04/10/23 15:11 Pulse Rhythm Regular 04/10/23 15:11 Respiratory Rate 17 04/10/23 15:11 Respiratory Effort Spontaneous, Non- Labored 04/10/23 15:11 Respiratory Depth Normal 04/10/23 15:11 Respiratory Patter n Normal 04/10/23 15:11 Blood Pressure 139/83 04/10/23 15:11 Blood Pressure Ketty n 101 04/10/23 15:11 Blood Pressure Pos ition Sitting 04/10/23 15:11 Pulse Oximetry 100 04/10/23 15:11 Oxygen Delivery Me thod Room Air 04/10/23 15:11 Sepsis Recent Feve r Within 48 Hours No 04/10/23 15:11 Sepsis New/Unexpla ined Change in Men karmen Status No 04/10/23 15:11 Exam: Pre-Anes Outpt Exam: alert, oriented x 3, clear to auscultation bilaterally and regular rate & rhythm Cardiac Studies: No Data to Display
--- NOTE | 2023-04-10 16:25 | ANES.PROC ---
Anesthesia Procedures Procedure/Date: 04/10/23 Epidural: Time Out Performed: Yes Consents Signed: Procedure Consent Consent: requested by attending/covering physician, from patient, from other, risks and benefits reviewed and patient agrees to proceed Lumbar Level: L2-L3 Epidural position: sitting Epidural procedure: sterile prep of area, 1% lidocaine to numb the area, 18 g needle and neg for paresthesia Additional Comments: Loss of resistance obtained 1 interspace above previous epidural. Nursing staff obtained 20 cc blood sterilely from patient's AC and this was injected into epidural space with immediate resolution of headache
[2023-04-10 16:26] VITALS: BP 160/99; PULSE 96; RESP 16; O2SAT 99
[2023-04-10] MEDS: sodium chloride 0.9% 1,000 ML 999 ML IV (18:01)
[2023-04-10] MEDS: ketorolac 30 mg/mL INJ IVP (18:03)
[2023-04-10 18:04] LABS: Basophils # 0.1 10^3/uL (0.0-0.1); Basophils % 0.3 %; Eosinophils # 0.4 10^3/uL (0.0-0.8); Eosinophils % 2.1 %; Hematocrit 26.7 % (36-47); Lymphocytes # 1.6 10^3/uL (0.8-4.8); Lymphocytes % 8.9 %; Mean Corpuscular HGB Conc 27.3 g/dL (30-55); Mean Corpuscular Hemoglobin 20.2 pg (27-33); Mean Platelet Volume 11.3 fL (7.4-10.4); Monocytes # 0.7 10^3/uL (0.2-0.9); Monocytes % 3.9 %; Neutrophils % 83.4 %; Nucleated Red Blood Cells # 0.1 /100WBC; Nucleated Red Blood Cells % 0.6 %; Platelet Count 419 10^3/cmm (157-399); Red Blood Count 3.61 10^6/uL (3.85-5.65); Red Cell Distribution Width 21.3 % (12.1-15.1); White Blood Count 18.34 10^3/uL (3.29-11.43)
[2023-04-10 18:05] VITALS: BP 161/101; PULSE 110; RESP 17; O2SAT 100
[2023-04-10 18:12] LABS: Alanine Aminotransferase 40 U/L (0-33); Albumin Level 3.5 g/dL (3.5-5.2); Alkaline Phosphatase 181 U/L (35-105); Anion Gap 14.6 (5-19); Aspartate Amino Transferase 21 U/L (0-32); Blood Urea Nitrogen 5 mg/dL (6-20); Calcium 8.7 mg/dL (8.5-10.5); Carbon Dioxide 24 mmol/L (22-29); Chloride 106 mmol/L (98-107); Globulin 3.4 g/dL (1.3-4.6); Glucose 78 mg/dL (65-115); Osmolality Calculated 288 mOsm/kg (285-295); Potassium 3.6 mmol/L (3.5-5.1); Sodium 141 mmol/L (136-145); Total Bilirubin 0.3 mg/dL (0.15-1.2); Total Protein 6.9 g/dL (6.6-8.7)
[2023-04-10] MEDS: labetalol 5 mg/mL SDV 20mL 10 MG IVP (18:34)
[2023-04-10 19:00] LABS: Urine Appearance Cloudy (CLEAR); pH Urine 6 (5-7)
[2023-04-10 19:01] LABS: Add Urine Microscopic? YES; Bilirubin Urine Neg (Negative); Blood Urine 3+ (Negative); Glucose Urine UA Norm (Normal); Ketones Urine Negative (Negative); Leukocyte Esterase Urine 2+ (Negative); Nitrate Urine Negative (Negative); Protein Urine 1+ (Negative); Specific Gravity, Urine 1.015 (1.005-1.030); Urine Color Red (Yellow); Urobilinogen Urine Norm (Negative)
[2023-04-10 19:17] VITALS: BP 146/102
[2023-04-10 19:18] VITALS: BP 146/102; PULSE 110; RESP 17; TEMP 36.9; O2SAT 100
[2023-04-10 19:20] LABS: Add Urine Culture? Yes; Bacteria Urine TRACE /hpf; Mucus Urine 1+ /hpf; RBC Urine 50-80 /hpf (0-2); Squamous Epithelial Cell Urine 0-4 /hpf (0-5); Transitional Epi Cells Urine 0-4 /hpf; WBC Urine 25-40 /hpf (0-5)
== END 2023-04-10 19:19 | disposition home or self-care (01) ==
PROVIDERS: Family Medicine; Emergency Provider Emergency Medicine; PCP Family Medicine
DX: O89.4 Spinal and epidural anesthesia-induced headache during the puerperium (principal); O16.5 Unspecified maternal hypertension, complicating the puerperium
CPT/HCPCS: 80053; 81001; 85025; 87086; 96374; 96375; 99284; J1885; J3490; J7030

== ENCOUNTER 2023-04-20 15:18 | Inpatient (IN) | payer MEDICAID, SELFPAY ==
[2023-04-20 15:47] VITALS: BP 111/69; PULSE 135; RESP 18; TEMP 39.2; O2SAT 99
--- NOTE | 2023-04-20 15:57 | XRR_ITS ---
PROCEDURE INFORMATION: Exam: XR Chest Exam date and time: 04/20/2023 4:06 PM Age: 22 years old Clinical indication: Fever and shortness of breath; Patient HX: SOB; Fever; Weakness; Asthma TECHNIQUE: Imaging protocol: Radiologic exam of the chest. Views: 1 view. COMPARISON: No relevant prior studies available. FINDINGS: Lungs: Unremarkable. No consolidation. Pleural spaces: Unremarkable. No pleural effusion. No pneumothorax. Heart/Mediastinum: Unremarkable. No cardiomegaly. Bones/joints: Unremarkable. XR/XR chest 1V portable [id number] IMPRESSION: No acute findings.
--- NOTE | 2023-04-20 16:11 | ED_ITS ---
Documented by User: Francois Rangel DO 04/23/23 11:10 HPI - General Adult General: Chief complaint: Fever Stated complaint: dr nasra diaz, N/V, SOB, Fever, Chills Time Seen by Provider: 04/20/23 16:00 Source: patient Mode of arrival: ambulatory History of Present Illness: 22-year-old female presents to the emergency room with a fever. She recently had a normal spontaneous vaginal delivery and had a post spinal tap late came to the emergency room and had a blood patch placed. Did have improvement of her headache 10 days later now patient is presenting with fever. Denies headache. She has had a cough congestion nausea but no vomiting. Onset (ago): hour(s) Relieving factors: none Exacerbating factors: none Associated symptoms: Reports dyspnea; Deny chest pain, confusion, cough, diaphoresis, decreased appetite, fevers/chills, headache(s), malaise, nausea, rash, palpitations, seizures, short of breath, syncope, vomiting or weakness Review of Systems Const: Reports: fever(s) and chills; Denies: malaise or diaphoresis Card: Denies: chest pain, palpitations or syncope Resp: Reports: dyspnea and non-productive cough GI: Denies: abdominal pain, nausea or vomiting : Denies: flank pain, dysuria, urinary frequency or urinary urgency Musc: Denies: neck pain or back pain Skin/Breast: Denies: rash Neuro: Denies: headache(s) or confusion PFSH ED PFSH: Medical History No pertinent past medical history Surgical History No pertinent past surgical history Physical Exam Const: GENERAL APPEARANCE: cooperative and comfortable ORIENTATION/CONSCIOUSNESS: Yes awake, Yes oriented to person, Yes oriented to place and Yes oriented to time HENMT: COMMON NORMALS: normocephalic, atraumatic and hearing grossly normal bilaterally HEAD & SCALP: normocephalic and atraumatic Resp: COMMON NORMALS: normal respiratory effort, No retractions, No use of accessory muscles and clear to auscultation bilaterally AUSCULTATION: clear to auscultation bilaterally Cardio: COMMON NORMALS: regular rate, regular rhythm and No murmurs present (Cardio) RATE: regular rate RHYTHM: regular rhythm GI: COMMON NORMALS: Soft to palpation and No hepatosplenomegaly present AUSCULTATION: Yes normoactive bowel sounds PALPATION: Yes Soft to palpation, No Tenderness to palpation present (GI), No Guarding due to palpation present (GI) and Yes No hepatosplenomegaly present Extremity: COMMON NORMALS: normal to inspection, capillary refill normal, no clubbing, cyanosis or edema, no calf tenderness and no pedal edema Neuro: SENSORIUM/ORIENTATION: Yes oriented to person, Yes oriented to place and Yes oriented to time Skin: COMMON NORMALS: no rashes or lesions noted GENERAL SKIN EXAM: no rashes or lesions noted Course Vital Signs: Vital signs: Vital Signs Temperature 98.2 F 04/23/23 08:00 Pulse Rate 81 04/23/23 08:35 Respiratory Rate 18 04/23/23 08:35 Blood Pressure 112/68 04/23/23 08:00 Pulse Oximetry 99 04/23/23 08:35 Oxygen Delivery Me thod Room Air 04/23/23 08:35 MDM - General Adult Medical Decision Making Care signed out to Dr. Garcia at change of shift. See final notes for diagnosis and disposition. Patient presents here with acute cystitis along with vomiting does have elevated white count her vitals here improved after IV fluids will admit for observation 5 antibiotics. Lab Data 04/23/23 04:37 04/23/23 04:37 Radiology Impressions Chest X-Ray 04/20/23 15:57 IMPRESSION: No acute findings. Abdomen/Pelvis CT 04/20/23 18:04 IMPRESSION: 1. The uterus is enlarged consistent with status. No fluid collection associated with the uterus. 2. No abscess. Pelvis Ultrasound 04/21/23 09:04 Impression: 1. Bulky uterus, heterogenous myometrial echogenicity 2. Endometrial fluid, no retained products of conception 3. Normal bilateral ovaries Breast Ultrasound 04/22/23 17:19 IMPRESSION: No evidence of abscess. Findings suspicious for mastitis. Laboratory Results WBC 15.38 10^3/uL (3.29-11.43) H 04/20/23 16:30 RBC 4.35 10^6/uL (3.85-5.65) 04/20/23 16:30 Hgb 8.70 g/dL (11.27-16.99) L 04/20/23 16:30 Hct 31.3 % (36-47) L 04/20/23 16:30 MCV 72.0 fl (85-98) L 04/20/23 16:30 MCH 20.0 pg (27-33) L 04/20/23 16:30 MCHC 27.8 g/dL (30-55) L 04/20/23 16:30 RDW 20.9 % (12.1-15.1) H 04/20/23 16:30 Plt Count 443 10^3/cmm (157-399) H 04/20/23 16:30 MPV 10.3 fL (7.4-10.4) 04/20/23 16:30 Neut % (Auto) 91.1 % 04/20/23 16:30 Lymph % (Auto) 6.2 % 04/20/23 16:30 Storey % (Auto) 1.6 % 04/20/23 16:30 Eos % (Auto) 0.1 % 04/20/23 16:30 Baso % (Auto) 0.3 % 04/20/23 16:30 Neut # (Auto) 14.02 10^3/uL (1.8-7.7) H 04/20/23 16:30 Lymph # (Auto) 1.0 10^3/uL (0.8-4.8) 04/20/23 16:30 Storey # (Auto) 0.2 10^3/uL (0.2-0.9) 04/20/23 16:30 Eos # (Auto) 0.0 10^3/uL (0.0-0.8) 04/20/23 16:30 Baso # (Auto) 0.0 10^3/uL (0.0-0.1) 04/20/23 16: Nucleated RBC % (auto) 0 % 04/20/23 16: Nucleated RBCs # 0.0 /100WBC 04/20/23 16:30 Sodium 131 mmol/L (136-145) L 04/20/23 16:30 Potassium 3.9 mmol/L (3.5-5.1) 04/20/23 16:30 Chloride 98 mmol/L (98-107) 04/20/23 16:30 Carbon Dioxide 19 mmol/L (22-29) L 04/20/23 16:30 Anion Gap 17.9 (5-19) 04/20/23 16:30 BUN 12 mg/dL (6-20) 04/20/23 16:30 Creatinine 0.8 mg/dL (0.5-0.9) 04/20/23 16:30 GFR Calculation 89.7 mL/min (90-130) L 04/20/23 16:30 Glucose 98 mg/dL (65-115) 04/20/23 16:30 Calculated Osmolality 272 mOsm/kg (285-295) L 04/20/23 16:30 Lactic Acid 1.1 mmol/L (0.5-2.2) 04/20/23 16:44 Calcium 9.2 mg/dL (8.5-10.5) 04/20/23 16:30 Total Bilirubin 0.6 mg/dL (0.15-1.2) 04/20/23 16:30 AST 32 U/L (0-32) 04/20/23 16:30 ALT 20 U/L (0-33) 04/20/23 16:30 Alkaline Phosphatase 119 U/L (35-105) H 04/20/23 16:30 C-Reactive Protein 114.4 mg/L (0.0-4.9) H 04/20/23 16:30 Total Protein 7.9 g/dL (6.6-8.7) 04/20/23 16:30 Albumin 4.1 g/dL (3.5-5.2) 04/20/23 16:30 Globulin 3.8 g/dL (1.3-4.6) 04/20/23 16:30 Urine Color Yellow (Yellow) 04/20/23 17:06 Urine Appearance Hazy (CLEAR) A 04/20/23 17:06 Urine pH 8 (5-7) H 04/20/23 17:06 Ur Specific [place] 1.005 (1.005-1.030) 04/20/23 17:06 Urine Protein 3+ (Negative) H 04/20/23 17:06 Urine Glucose (UA) Norm (Normal) 04/20/23 17:06 Urine Ketones Negative (Negative) 04/20/23 17:06 Urine Blood 3+ (Negative) H 04/20/23 17:06 Urine Nitrate Negative (Negative) 04/20/23 17:06 Urine Bilirubin Neg (Negative) 04/20/23 17:06 Prot Sulfosalicylic Acd Positive (Negative) 04/20/23 17:06 Urine Urobilinogen 1 mg/dL (Negative) H 04/20/23 17:06 Ur Leukocyte Esterase 2+ (Negative) H 04/20/23 17:06 Urine RBC 25-40 /hpf (0-2) H 04/20/23 17:06 Urine WBC 55-80 /hpf (0-5) H 04/20/23 17:06 Ur Squamous Epith Cells 0-4 /hpf (0-5) H 04/20/23 17:06 Amorphous Sediment 1+ /hpf 04/20/23 17:06 Urine Bacteria 3+ /hpf (NONE) H 04/20/23 17:06 Coarse Granular Casts 0-4 /lpf H 04/20/23 17:06 Urine Mucus 1+ /hpf 04/20/23 17:06 Influenza Type A Ag negative (Negative) 04/20/23 17:31 Influenza Type B Ag negative (Negative) 04/20/23 17:31 SARS-CoV-2 Ag (Rapid) negative (Negative) 04/20/23 17:31 Discharge Plan Discharge Patient Disposition: Placed in Observation Admit Provider: Armando Jackman Clinical Impression: Acute cystitis Coding Level of Care Code ED Deckhand Crab Boat for Chg Fwd Documented by User: Ghazal Garcia MD 04/20/23 20:25 HPI - General Adult General: Chief complaint: Fever Stated complaint: dr nasra diaz, N/V, SOB, Fever, Chills Time Seen by Provider: 04/20/23 16:00 PFSH ED PFSH: Medical History No pertinent past medical history Surgical History No pertinent past surgical history Course Vital Signs: Vital signs: Vital Signs Temperature 98.2 F 04/23/23 08:00 Pulse Rate 81 04/23/23 08:35 Respiratory Rate 18 04/23/23 08:35 Blood Pressure 112/68 04/23/23 08:00 Pulse Oximetry 99 04/23/23 08:35 Oxygen Delivery Me thod Room Air 04/23/23 08:35 MDM - General Adult Medical Decision Making Patient presents here with acute cystitis along with vomiting does have elevated white count her vitals here improved after IV fluids will admit for observation 5 antibiotics. Medical Records I reviewed the patient's medical records. Lab Data I reviewed the patient's lab results. 04/23/23 04:37 04/23/23 04:37 Radiology Impressions Chest X-Ray 04/20/23 15:57 IMPRESSION: No acute findings. Abdomen/Pelvis CT 04/20/23 18:04 IMPRESSION: 1. The uterus is enlarged consistent with status. No fluid collection associated with the uterus. 2. No abscess. Pelvis Ultrasound 04/21/23 09:04 Impression: 1. Bulky uterus, heterogenous myometrial echogenicity 2. Endometrial fluid, no retained products of conception 3. Normal bilateral ovaries Breast Ultrasound 04/22/23 17:19 IMPRESSION: No evidence of abscess. Findings suspicious for mastitis. Laboratory Results WBC 15.38 10^3/uL (3.29-11.43) H 04/20/23 16:30 RBC 4.35 10^6/uL (3.85-5.65) 04/20/23 16:30 Hgb 8.70 g/dL (11.27-16.99) L 04/20/23 16:30 Hct 31.3 % (36-47) L 04/20/23 16:30 MCV 72.0 fl (85-98) L 04/20/23 16:30 MCH 20.0 pg (27-33) L 04/20/23 16:30 MCHC 27.8 g/dL (30-55) L 04/20/23 16:30 RDW 20.9 % (12.1-15.1) H 04/20/23 16:30 Plt Count 443 10^3/cmm (157-399) H 04/20/23 16:30 MPV 10.3 fL (7.4-10.4) 04/20/23 16:30 Neut % (Auto) 91.1 % 04/20/23 16:30 Lymph % (Auto) 6.2 % 04/20/23 16:30 Storey % (Auto) 1.6 % 04/20/23 16:30 Eos % (Auto) 0.1 % 04/20/23 16:30 Baso % (Auto) 0.3 % 04/20/23 16:30 Neut # (Auto) 14.02 10^3/uL (1.8-7.7) H 04/20/23 16:30 Lymph # (Auto) 1.0 10^3/uL (0.8-4.8) 04/20/23 16:30 Storey # (Auto) 0.2 10^3/uL (0.2-0.9) 04/20/23 16:30 Eos # (Auto) 0.0 10^3/uL (0.0-0.8) 04/20/23 16:30 Baso # (Auto) 0.0 10^3/uL (0.0-0.1) 04/20/23 16:30 Nucleated RBC % (auto) 0 % 04/20/23 16:30 Nucleated RBCs # 0.0 /100WBC 04/20/23 16:30 Sodium 131 mmol/L (136-145) L 04/20/23 16:30 Potassium 3.9 mmol/L (3.5-5.1) 04/20/23 16:30 Chloride 98 mmol/L (98-107) 04/20/23 16:30 Carbon Dioxide 19 mmol/L (22-29) L 04/20/23 16:30 Anion Gap 17.9 (5-19) 04/20/23 16:30 BUN 12 mg/dL (6-20) 04/20/23 16:30 Creatinine 0.8 mg/dL (0.5-0.9) 04/20/23 16:30 GFR Calculation 89.7 mL/min (90-130) L 04/20/23 16:30 Glucose 98 mg/dL (65-115) 04/20/23 16:30 Calculated Osmolality 272 mOsm/kg (285-295) L 04/20/23 16:30 Lactic Acid 1.1 mmol/L (0.5-2.2) 04/20/23 16:44 Calcium 9.2 mg/dL (8.5-10.5) 04/20/23 16:30 Total Bilirubin 0.6 mg/dL (0.15-1.2) 04/20/23 16:30 AST 32 U/L (0-32) 04/20/23 16:30 ALT 20 U/L (0-33) 04/20/23 16:30 Alkaline Phosphatase 119 U/L (35-105) H 04/20/23 16:30 C-Reactive Protein 114.4 mg/L (0.0-4.9) H 04/20/23 16:30 Total Protein 7.9 g/dL (6.6-8.7) 04/20/23 16:30 Albumin 4.1 g/dL (3.5-5.2) 04/20/23 16:30 Globulin 3.8 g/dL (1.3-4.6) 04/20/23 16:30 Urine Color Yellow (Yellow) 04/20/23 17:06 Urine Appearance Hazy (CLEAR) A 04/20/23 17:06 Urine pH 8 (5-7) H 04/20/23 17:06 Ur Specific [place] 1.005 (1.005-1.030) 04/20/23 17:06 Urine Protein 3+ (Negative) H 04/20/23 17:06 Urine Glucose (UA) Norm (Normal) 04/20/23 17:06 Urine Ketones Negative (Negative) 04/20/23 17:06 Urine Blood 3+ (Negative) H 04/20/23 17:06 Urine Nitrate Negative (Negative) 04/20/23 17:06 Urine Bilirubin Neg (Negative) 04/20/23 17:06 Prot Sulfosalicylic Acd Positive (Negative) 04/20/23 17:06 Urine Urobilinogen 1 mg/dL (Negative) H 04/20/23 17:06 Ur Leukocyte Esterase 2+ (Negative) H 04/20/23 17:06 Urine RBC 25-40 /hpf (0-2) H 04/20/23 17:06 Urine WBC 55-80 /hpf (0-5) H 04/20/23 17:06 Ur Squamous Epith Cells 0-4 /hpf (0-5) H 04/20/23 17:06 Amorphous Sediment 1+ /hpf 04/20/23 17:06 Urine Bacteria 3+ /hpf (NONE) H 04/20/23 17:06 Coarse Granular Casts 0-4 /lpf H 04/20/23 17:06 Urine Mucus 1+ /hpf 04/20/23 17:06 Influenza Type A Ag negative (Negative) 04/20/23 17:31 Influenza Type B Ag negative (Negative) 04/20/23 17:31 SARS-CoV-2 Ag (Rapid) negative (Negative) 04/20/23 17:31 All radiology interpretation(s) finalized by discharge Discharge Plan Discharge Patient Disposition: Placed in Observation Admit Provider: Armando Jackman Clinical Impression: Acute cystitis Coding Level of Care Code ED Deckhand Crab Boat for Katherine Lees
[2023-04-20 17:02] LABS: Basophils % 0.3 %; Eosinophils % 0.1 %; Hematocrit 31.3 % (36-47); Lymphocytes % 6.2 %; Mean Corpuscular HGB Conc 27.8 g/dL (30-55); Mean Platelet Volume 10.3 fL (7.4-10.4); Monocytes # 0.2 10^3/uL (0.2-0.9); Monocytes % 1.6 %; Neutrophils # 14.02 10^3/uL (1.8-7.7); Neutrophils % 91.1 %; Nucleated Red Blood Cells % 0 %; Platelet Count 443 10^3/cmm (157-399); Red Blood Count 4.35 10^6/uL (3.85-5.65); Red Cell Distribution Width 20.9 % (12.1-15.1); White Blood Count 15.38 10^3/uL (3.29-11.43)
[2023-04-20] MEDS: sodium chloride 0.9% 1,000 ML 999 ML IV ×3 (17:14→18:34)
[2023-04-20] MEDS: acetaminophen 325 mg Tablet 650 MG PO (17:14)
[2023-04-20 17:19] LABS: Lactic Sepsis W/Reflex 1.1 mmol/L (0.5-2.2)
[2023-04-20 17:30] VITALS: BP 93/47; PULSE 118; RESP 18; O2SAT 98
[2023-04-20 17:34] LABS: Alanine Aminotransferase 20 U/L (0-33); Albumin Level 4.1 g/dL (3.5-5.2); Alkaline Phosphatase 119 U/L (35-105); Aspartate Amino Transferase 32 U/L (0-32); Blood Urea Nitrogen 12 mg/dL (6-20); C Reactive Protein 114.4 mg/L (0.0-4.9); Calcium 9.2 mg/dL (8.5-10.5); Carbon Dioxide 19 mmol/L (22-29); Chloride 98 mmol/L (98-107); Globulin 3.8 g/dL (1.3-4.6); Glomerular Filtration Rate 89.7 mL/min (90-130); Glucose 98 mg/dL (65-115); Osmolality Calculated 272 mOsm/kg (285-295); Sodium 131 mmol/L (136-145); Total Bilirubin 0.6 mg/dL (0.15-1.2); Total Protein 7.9 g/dL (6.6-8.7)
[2023-04-20 17:36] LABS: Anion Gap 17.9 (5-19); Potassium 3.9 mmol/L (3.5-5.1)
[2023-04-20 18:00] VITALS: PULSE 117; RESP 18; O2SAT 98
[2023-04-20 18:01] LABS: Bilirubin Urine Neg (Negative); Blood Urine 3+ (Negative); Glucose Urine UA Norm (Normal); Ketones Urine Negative (Negative); Nitrate Urine Negative (Negative); Protein Urine 3+ (Negative); Specific Gravity, Urine 1.005 (1.005-1.030); Sulfosalicylic Acid Urine Positive (Negative); Urine Appearance Hazy (CLEAR); Urine Color Yellow (Yellow); Urobilinogen Urine 1 mg/dL (Negative); pH Urine 8 (5-7)
[2023-04-20 18:02] LABS: Add Urine Culture? Yes; Add Urine Microscopic? YES; Bacteria Urine 3+ /hpf; Coarse Granular Casts Urine 0-4 /lpf; Leukocyte Esterase Urine 2+ (Negative); Mucus Urine 1+ /hpf; RBC Urine 25-40 /hpf (0-2); Squamous Epithelial Cell Urine 0-4 /hpf (0-5); WBC Urine 55-80 /hpf (0-5)
[2023-04-20 18:03] LABS: Influenza A by IFA negative (Negative); Influenza B by IFA negative (Negative); SARS Covid-2 Antigen negative (Negative)
[2023-04-20 18:03] LABS: Amorphous Sediment Urine 1+ /hpf
--- NOTE | 2023-04-20 18:04 | CTR_ITS ---
PROCEDURE INFORMATION: Exam: CT Abdomen And Pelvis With Contrast Exam date and time: 04/20/2023 7:12 PM Age: 22 years old Clinical indication: Abdominal pain; Generalized; Patient HX: Abd pain with fever. Two weeks post . TECHNIQUE: Imaging protocol: Computed tomography of the abdomen and pelvis with contrast. Radiation optimization: All CT scans at this facility use at least one of these dose optimization techniques: automated exposure control; mA and/or kV adjustment per patient size (includes targeted exams where dose is matched to clinical indication); or iterative reconstruction. Contrast material: OMNI 350; Contrast volume: 100 ml; Contrast route: INTRAVENOUS (IV); REPORTING DATA: Count of CT and Cardiac NM exams in prior 12 months: This patient has received 0 known CTs and 0 known cardiac nuclear medicine studies in the 12 months prior to the current study. COMPARISON: US OB >= 14 weeks fetus [id number] 11/13/2022 1:37 PM RADIATION DOSE METRICS: Total DLP (mGy-cm): 603.86 FINDINGS: Liver: Normal. No mass. Gallbladder and bile ducts: Normal. No calcified stones. No ductal dilation. Pancreas: Normal. No ductal dilation. Spleen: The spleen is enlarged measuring up to 15.9 cm. Adrenal glands: Normal. No mass. Kidneys and ureters: Normal. No hydronephrosis. Stomach and bowel: Unremarkable. No obstruction. No mucosal thickening. Appendix: No evidence of appendicitis. Intraperitoneal space: Unremarkable. No free air. No significant fluid collection. Vasculature: Unremarkable. No abdominal aortic aneurysm. Lymph nodes: Unremarkable. No enlarged lymph nodes. Urinary bladder: Unremarkable as visualized. Reproductive: The uterus is enlarged consistent with status. No fluid collection associated with the uterus. Bones/joints: Unremarkable. No acute fracture. Soft tissues: Unremarkable. Other findings: No abscess. CT/CT abdomen pelvis w con* [id number] IMPRESSION: 1. The uterus is enlarged consistent with status. No fluid collection associated with the uterus. 2. No abscess.
[2023-04-20] MEDS: cefTRIAXone 1,000 MG in sodium chloride 0.9% (plus) 50 ML 100 MG IV (18:33)
[2023-04-20] MEDS: iohexol 350 mg/mL 500 mL Btl (per mL) IV (19:14)
[2023-04-20 19:57] VITALS: BP 114/58; PULSE 96; RESP 28; O2SAT 98
--- NOTE | 2023-04-20 20:21 | PM.HP ---
Providers/Chief Complaint Primary Care Provider: Rosita Crowell MD Chief Complaint: dr hammonds over, N/V, SOB, Fever, Chills History of Present Illness Leidy Montes is a 22 year old female 1 week presenting today with chief complaint of fever, rigors, chills and cough. She has not noticed any UTI related symptoms at home. No vomiting but endorsing nausea. She was feeling uncomfortable to prompted her visit to the ER. She has been diagnosed as related to UTI. She has been given septic bolus, antibiotics and lactic acid is normal she has a high white count with fever 102. CT abdomen pelvis did not show any retained fetus or fluid around her uterus Patient has been counseled not to breast-feed for at least next 10 to 14 days.No sign of kidney stone Review of Systems Const: Reports: fever(s), chills and body aches Eyes: Denies: change in vision ENMT: Denies: throat pain Card: Denies: chest pain Resp: Reports: dyspnea GI: Reports: nausea : Reports: urinary frequency Musc: Denies: neck pain Medications/Allergies Home Medications Medication Instructions Recorded Confirmed Last Taken Type acetaminophen 500 mg tablet 1,000 mg PO Q6H PRN Pain 04/10/23 04/10/23 Unknown History acetaminophen-pamabrom 500 mg-25 2 tab PO Q6H PRN Pain 04/10/23 04/10/23 04/08/23 History mg tablet (Midol) hydrocodone 5 mg-acetaminophen 325 1 tab PO Q6H PRN pain #8 tabs 04/10/23 Unknown Rx mg tablet ibuprofen 200 mg tablet 600 mg PO Q6H PRN Pain 04/10/23 04/10/23 04/10/23 History metoprolol succinate 25 mg 25 mg PO DAILY #30 tabs 04/10/23 Unknown Rx tablet,extended release 24 hr naproxen 500 mg tablet (Naprosyn) 500 mg PO BID PRN pain #20 tabs 04/10/23 Unknown Rx vit no.95-ferrous 1 tab PO DAILY 04/10/23 04/10/23 4 Days Ago History fumarate 28 mg-folic acid 800 mcg ~04/06/23 tablet ( Multivitamins) Allergies Allergy/AdvReac Type Severity Reaction Status Date / Time mushroom Allergy ALGY-Anaphy Verified 04/10/23 15:34 laxis PFSH Acute PFSH: Medical History No pertinent past medical history Surgical History No pertinent past surgical history Vitals/I&O/Wt Last Vital Signs Temp 102.5 F H 04/20/23 15:47 Pulse 96 04/20/23 19:57 Resp 28 H 04/20/23 19:57 BP 114/58 04/20/23 19:57 Pulse Ox 98 04/20/23 19:57 O2 Del Method Room Air 04/20/23 19:57 04/20/23 04/20/23 04/20/23 06:59 14:59 22:59 Intake Total 1050 / 1050 Balance 1050 / 1050 Weight last 48 hrs Weight 87.09 kg Physical Exam Narrative: Pleasant cooperative GCS 15 Dehydrated Septic/toxic appearance Tachycardia Currently on room air Abdomen soft GCS 15 Nonfocal neuro exam No active chest pain at the bedside Data 04/20/23 16:30 04/20/23 16:30 Micro: Microbiology 04/20/23 16:44 Blood Culture - Preliminary Blood SPECIMEN COLLECTED 04/20/23 16:38 Blood Culture - Preliminary Blood SPECIMEN COLLECTED A&P Assessment and plan (1) Acute cystitis: (2) Anemia: (3) Normal spontaneous vaginal delivery: (4) Sepsis: (5) Encounter for breast feeding counseling: (6) Hypokalemia: (7) Hyponatremia: Plan Sepsis related to UTI Blood cultures taken, lactic acid normal Criteria met with fever tachypnea tachycardia Hyponatremia Clinical signs of dehydration Start IV fluids Blood culture urine culture taken Start broad-spectrum antibiotics CT abdomen pelvis did not show any kidney stones 1 week Patient has been counseled not to breast-feed for at least 14 days Full code Regular diet DVT prophylaxis on board patient has chronic anemia, microcytic check iron Attestations Medical Necessity Statement*: More than 2 midnights anticipated Diagnoses Acute cystitis N30.00 Anemia D64.9 Normal spontaneous vaginal delivery O80 Sepsis A41.9 Encounter for breast feeding counseling Z71.89 Hypokalemia E87.6 Hyponatremia E87.1
[2023-04-20 20:29] VITALS: BP 117/64; PULSE 90; RESP 18; O2SAT 99
[2023-04-20 21:17] VITALS: BMI 30.6
[2023-04-20] MEDS: vancomycin 1,250 MG/250 ML PIGGYBACK 250 MG IV (21:55)
[2023-04-20] MEDS: sodium chloride 0.9% 1,000 ML 75 ML IV (21:55)
[2023-04-20 22:14] LABS: D Dimer 2.12 ug/mLFEU (0-0.59)
[2023-04-20 22:27] LABS: Procalcitonin 0.17 ng/mL (0-0.5)
[2023-04-20 22:52] LABS: Ferritin 86 ng/mL (15-150); Iron 8 ug/dL (37-145); Percent Saturation 2.8 % (20-50); Total Iron Binding Capacity 280 mcg/dl; Unsaturated Iron Binding 272 ug/dL (112-347)
[2023-04-20] MEDS: piperacillin-tazobactam 3.375 GM in sodium chloride 0.9% (plus) 50 ML IV (23:24)
[2023-04-20 23:32] VITALS: BP 104/67; PULSE 103; RESP 19; TEMP 37.9; O2SAT 99
[2023-04-20] MEDS: ibuprofen 200 mg Tablet 600 MG PO (23:34)
[2023-04-21] VITALS (7 sets, daily range): BP systolic 107–120; BP diastolic 62–77; PULSE 85–125; RESP 17–19; TEMP 37.3–39.5; O2SAT 93–100
[2023-04-21] MEDS: piperacillin-tazobactam 3.375 GM in sodium chloride 0.9% (plus) 50 ML IV ×3 (06:12→23:02)
[2023-04-21 06:36] LABS: Basophils % 0.3 %; Hematocrit 26.8 % (36-47); Lymphocytes # 0.6 10^3/uL (0.8-4.8); Lymphocytes % 8.7 %; Mean Corpuscular HGB Conc 26.5 g/dL (30-55); Mean Corpuscular Hemoglobin 19.7 pg (27-33); Mean Corpuscular Volume 74.4 fl (85-98); Mean Platelet Volume 10.7 fL (7.4-10.4); Monocytes # 0.1 10^3/uL (0.2-0.9); Monocytes % 1.8 %; Neutrophils # 6.28 10^3/uL (1.8-7.7); Neutrophils % 88.4 %; Nucleated Red Blood Cells % 0 %; Platelet Count 356 10^3/cmm (157-399); Red Cell Distribution Width 21.1 % (12.1-15.1); White Blood Count 7.11 10^3/uL (3.29-11.43)
[2023-04-21 07:01] LABS: Blood Urea Nitrogen 10 mg/dL (6-20); Calcium 8.6 mg/dL (8.5-10.5); Carbon Dioxide 21 mmol/L (22-29); Chloride 107 mmol/L (98-107); Glomerular Filtration Rate 104.6 mL/min (90-130); Glucose 89 mg/dL (65-115); Osmolality Calculated 283 mOsm/kg (285-295); Sodium 137 mmol/L (136-145)
[2023-04-21] MEDS: metoprolol succinate ER (24 HR) 25 mg Tablet PO (08:32)
[2023-04-21] MEDS: acetaminophen 500 mg Tablet PO ×2 (08:32→19:32)
[2023-04-21] MEDS: iron sucrose 200 MG in sodium chloride 0.9% (100 ml) 100 ML 220 MG IV (08:33)
--- NOTE | 2023-04-21 09:04 | USR_ITS ---
PROCEDURE INFORMATION: Exam: US Nonobstetric Pelvis; Complete Exam date and time: 04/21/2023 9:34 AM Age: 22 years old Clinical indication: Pelvic pain; Additional info: High fever, 2 weeks TECHNIQUE: Imaging protocol: Transabdominal pelvic nonobstetric ultrasound. Complete exam. Real time ultrasound with image documentation. COMPARISON: US gall bladder [id number] 12/07/2020 8:34 PM FINDINGS: Uterus: Uterus is enlarged Endometrial stripe fluid is present. Endometrium measures 8.1 mm. There is no evidence of retained products of conception Right ovary/adnexa: Ovary is normal. No mass. Normal blood flow. 2.9 cm x 2 x 2 cm Left ovary/adnexa: Ovary is normal. No mass. Normal blood flow. 3.6 cm x 2 cm x 3.2 Intraperitoneal space: No intraperitoneal fluid. Urinary bladder: Normal. US/US pelvic complete* [id number] Impression: 1. Bulky uterus, heterogenous myometrial echogenicity 2. Endometrial fluid, no retained products of conception 3. Normal bilateral ovaries
[2023-04-21] MEDS: vancomycin 1,250 MG/250 ML PIGGYBACK 250 MG IV ×2 (11:34→21:18)
--- NOTE | 2023-04-21 13:35 | P.PN_ITS ---
Subjective Subjective: seen today fever this AM 102.6 Vitals/I&O/Wt Last Vital Signs Temp 99.1 F 04/21/23 11:22 Pulse 85 04/21/23 11:22 Resp 17 04/21/23 11:22 BP 113/72 04/21/23 11:22 Pulse Ox 93 04/21/23 11:22 O2 Del Method Room Air 04/21/23 11:22 04/20/23 04/21/23 04/21/23 22:59 06:59 14:59 Intake Total 3056.25 / 3056.25 660 / 3716.25 780 / 780 Output Total 500 / 500 700 / 1200 Balance 2556.25 / 2556.25 -40 / 2516.25 780 / 780 Weight last 48 hrs Weight 90.01 kg Weight 86.092 kg Weight 87.09 kg Physical Exam Narrative: Pleasant cooperative GCS 15 Dehydrated Septic/toxic appearance Currently on room air Abdomen soft GCS 15 Nonfocal neuro exam No active chest pain Data 04/21/23 05:11 04/21/23 05:11 Micro: Microbiology 04/20/23 17:06 Urine Culture - Preliminary Urine,Clean Catch 04/20/23 16:44 Blood Culture - Preliminary Blood SPECIMEN COLLECTED 04/20/23 16:38 Blood Culture - Preliminary Blood SPECIMEN COLLECTED A&P Assessment and plan (1) Acute cystitis: (2) Anemia: (3) Normal spontaneous vaginal delivery: (4) Sepsis: (5) Encounter for breast feeding counseling: (6) Hypokalemia: (7) Hyponatremia: Plan Sepsis related to UTI Blood cultures taken, lactic acid normal Criteria met with fever tachypnea tachycardia Hyponatremia Clinical signs of dehydration Start IV fluids Blood culture urine culture taken Start broad-spectrum antibiotics CT abdomen pelvis did not show any kidney stones 2 week Patient has been counseled not to breast-feed for at least 14 days - order pelvic US Full code Regular diet DVT prophylaxis on board patient has chronic anemia, microcytic check iron Attestations Medical Necessity Statement*: More than 2 midnights anticipated Diagnoses Acute cystitis N30.00 Anemia D64.9 Normal spontaneous vaginal delivery O80 Sepsis A41.9 Encounter for breast feeding counseling Z71.89 Hypokalemia E87.6 Hyponatremia E87.1
[2023-04-21] MEDS: sodium chloride 0.9% 1,000 ML 75 ML IV (14:43)
[2023-04-21] MEDS: lanolin oint 7 gm 1 APPLIC TOPICAL (21:46)
[2023-04-22] VITALS (12 sets, daily range): BP systolic 107–116; BP diastolic 70–76; PULSE 77–101; RESP 16–17; TEMP 36.7–38.3; O2SAT 97–99
[2023-04-22] MEDS: acetaminophen 500 mg Tablet PO ×2 (01:53→20:37)
[2023-04-22 05:26] LABS: Basophils % 0.4 %; Eosinophils % 0.7 %; Hematocrit 24.8 % (36-47); Lymphocytes # 1.1 10^3/uL (0.8-4.8); Lymphocytes % 24.9 %; Mean Corpuscular Hemoglobin 19.8 pg (27-33); Mean Corpuscular Volume 73.4 fl (85-98); Mean Platelet Volume 10.5 fL (7.4-10.4); Monocytes # 0.2 10^3/uL (0.2-0.9); Neutrophils # 3.07 10^3/uL (1.8-7.7); Neutrophils % 68.2 %; Nucleated Red Blood Cells % 0 %; Platelet Count 352 10^3/cmm (157-399); Red Blood Count 3.38 10^6/uL (3.85-5.65); Red Cell Distribution Width 21.1 % (12.1-15.1)
[2023-04-22 05:52] LABS: Anion Gap 15.2 (5-19); Blood Urea Nitrogen 8 mg/dL (6-20); Calcium 8.4 mg/dL (8.5-10.5); Carbon Dioxide 18 mmol/L (22-29); Chloride 108 mmol/L (98-107); Glomerular Filtration Rate 104.6 mL/min (90-130); Glucose 99 mg/dL (65-115); Osmolality Calculated 284 mOsm/kg (285-295); Potassium 3.2 mmol/L (3.5-5.1); Sodium 138 mmol/L (136-145)
[2023-04-22 06:20] LABS: Slide Review Slide Review Perform
[2023-04-22] MEDS: piperacillin-tazobactam 3.375 GM in sodium chloride 0.9% (plus) 50 ML IV ×2 (06:22→21:31)
--- NOTE | 2023-04-22 10:13 | PM.PN ---
Subjective Subjective: seen this am febrile overnight hb 6.70 this am Reports it hurts to pump from right breast and she believes she is got a mastitis. She feels very engorged and right breast significantly larger than left breast. Mild erythema present as well. He also lost IV access. Ultrasound-guided IV being attempted at this time. Vitals/I&O/Wt Last Vital Signs Temp 98.6 F 04/22/23 08:00 Pulse 77 04/22/23 08:00 Resp 16 04/22/23 08:00 BP 107/71 04/22/23 08:00 Pulse Ox 98 04/22/23 08:00 O2 Del Method Room Air 04/22/23 08:00 04/21/23 04/22/23 04/22/23 22:59 06:59 14:59 Intake Total 540 / 2723.75 930.0 / 3653.75 Balance 540 / 2723.75 930.0 / 3653.75 Weight last 48 hrs Weight 87.906 kg Weight 90.01 kg Weight 86.092 kg Weight 87.09 kg Physical Exam Narrative: Pleasant cooperative GCS 15 appears better today Currently on room air Abdomen soft GCS 15 Nonfocal neuro exam No active chest pain Right breast significantly larger than left breast with erythema and warmth present. No fluctuant mass noted. Data 04/22/23 04:37 04/22/23 04:37 Micro: Microbiology 04/20/23 17:06 Urine Culture - Final Urine,Clean Catch 04/20/23 16:44 Blood Culture - Preliminary Blood NEGATIVE TO DATE 04/20/23 16:38 Blood Culture - Preliminary Blood NEGATIVE TO DATE A&P Assessment and plan (1) Acute cystitis: (2) Anemia: (3) Normal spontaneous vaginal delivery: (4) Sepsis: (5) Encounter for breast feeding counseling: (6) Hypokalemia: (7) Hyponatremia: (8) Mastitis: Plan Sepsis related to UTI Blood cultures taken, lactic acid normal Criteria met with fever tachypnea tachycardia Hyponatremia - resolved Clinical signs of dehydration Continue normal saline 100 cc/h. Blood culture urine culture taken. Urine culture did not show any growth. Blood cultures negative to date. continue antibiotics CT abdomen pelvis did not show any kidney stones 2 week - order pelvic US - neg for retained products of conception -Encourage patient to continue pumping. ? Check right breast ultrasound to rule out underlying abscess. ? Recommended cool compresses. ? We will have nurse consult with patient. Full code Regular diet DVT prophylaxis on board patient has chronic anemia, microcytic check iron Attestations Medical Necessity Statement*: More than 2 midnights anticipated Diagnoses Acute cystitis N30.00 Anemia D64.9 Normal spontaneous vaginal delivery O80 Sepsis A41.9 Encounter for breast feeding counseling Z71.89 Hypokalemia E87.6 Hyponatremia E87.1 Mastitis N61.0
--- NOTE | 2023-04-22 17:19 | USR_ITS ---
PROCEDURE INFORMATION: Exam: US Right Breast, Complete, Abscess Evaluation Exam date and time: 04/22/2023 6:36 PM Age: 22 years old Clinical indication: Breast pain; Right; Patient HX: Patient is currently pumping milk. She is two weeks post child delivery. ; Additional info: R/O abscess TECHNIQUE: Imaging protocol: Right Ultrasound of the breast with image documentation. All quadrants and retroareolar regions evaluated. Exam focused on the search and evaluation for abscess. Exam is an emergent request and a non-BIRADS study. COMPARISON: No relevant prior studies available. FINDINGS: Breast/Soft tissues: Diffuse hyperemia and extensive edema is suggested with no evident discrete fluid collection. US/US breast RT complete [id number] IMPRESSION: No evidence of abscess. Findings suspicious for mastitis.
[2023-04-22] MEDS: sodium chloride 0.9% 100 mL Bag 50 ML IV (17:27)
[2023-04-22] MEDS: vancomycin 1,250 MG/250 ML PIGGYBACK 250 MG IV (19:55)
[2023-04-23] VITALS: BP 114/72; PULSE 75; RESP 17; TEMP 36.9; O2SAT 98
[2023-04-23] MEDS: sodium chloride 0.9% 1,000 ML 75 ML IV (01:22)
[2023-04-23 04:00] VITALS: BP 132/88; PULSE 74; RESP 17; TEMP 36.7; O2SAT 99
[2023-04-23 05:09] LABS: Basophils % 0.6 %; Eosinophils # 0.4 10^3/uL (0.0-0.8); Eosinophils % 7.8 %; Hematocrit 29.7 % (36-47); Lymphocytes # 1.5 10^3/uL (0.8-4.8); Lymphocytes % 28.1 %; Mean Corpuscular HGB Conc 28.6 g/dL (30-55); Mean Corpuscular Hemoglobin 21.4 pg (27-33); Mean Corpuscular Volume 74.6 fl (85-98); Mean Platelet Volume 10.7 fL (7.4-10.4); Monocytes # 0.3 10^3/uL (0.2-0.9); Monocytes % 5.5 %; Neutrophils % 55.1 %; Nucleated Red Blood Cells % 0 %; Platelet Count 445 10^3/cmm (157-399); Red Blood Count 3.98 10^6/uL (3.85-5.65); Red Cell Distribution Width 21.7 % (12.1-15.1); White Blood Count 5.26 10^3/uL (3.29-11.43)
[2023-04-23 05:33] LABS: Anion Gap 17.4 (5-19); Blood Urea Nitrogen 8 mg/dL (6-20); Carbon Dioxide 18 mmol/L (22-29); Chloride 109 mmol/L (98-107); Glucose 97 mg/dL (65-115); Osmolality Calculated 290 mOsm/kg (285-295); Potassium 3.4 mmol/L (3.5-5.1); Sodium 141 mmol/L (136-145); Vancomycin Trough 9.3 ug/mL (10-15)
[2023-04-23] MEDS: vancomycin 1,250 MG/250 ML PIGGYBACK 250 MG IV (05:39)
[2023-04-23] MEDS: piperacillin-tazobactam 3.375 GM in sodium chloride 0.9% (plus) 50 ML IV (07:34)
[2023-04-23 08:00] VITALS: BP 112/68; PULSE 74; RESP 16; TEMP 36.8; O2SAT 98
[2023-04-23 08:35] VITALS: PULSE 81; RESP 18; O2SAT 99
[2023-04-23 11:36] VITALS: BP 120/81; PULSE 81; RESP 16; TEMP 36.9; O2SAT 99
[2023-04-23 14:45] VITALS: BP 120/81; PULSE 81; RESP 16; TEMP 36.9; O2SAT 99
--- NOTE | 2023-04-23 23:16 | PM.DCS ---
Discharge Providers Date of Admission: 04/20/23 19:57 Date of Discharge: April 23, 2023 Attending Provider at Admission: Armando Jackman MD Attending Provider at Discharge: Imelda Arteaga MD Primary Care Provider: Rosita Crowell MD Diagnoses at Discharge Discharge Diagnosis (1) Acute cystitis: Status: Acute (2) Anemia: Status: Acute (3) Normal spontaneous vaginal delivery: Status: Acute (4) Sepsis: Status: Acute (5) Encounter for breast feeding counseling: Status: Acute (6) Hypokalemia: Status: Acute (7) Hyponatremia: Status: Acute (8) Mastitis: Status: Acute Reason for Visit Reason for Visit: dr nasra diaz, N/V, SOB, Fever, Chills Brief History: Leidy Montes is a 22 year old female s/p recent on 04/08/23 , complicated by CSF leak at epidural site s/p blood patch on 04/10, presented to the ER on 04/20/23 with c/o fever, rigors, chills and cough.?She denies any dysuria. Denied any abnormal vaginal discharge. Stated that she has post bleeding which is appearing similar to periods. She had painful right breast with right breast appearing to be more swollen, warm, erythematous and tender to touch compared to left side. Her symptoms were most likely related to mastitis vs possible contribution by UTI. Urine cx showed urogenital shady not further identified. US of the breast was negative for any underlying abscess. US pelvis showed Endometrial fluid, no retained products of conception. CT abdomen pelvis did not show any retained products. She was treated with iv abx zosyn and vancomycin. She receievd Ivf fluids. She has been afebrile for over 24 hrs. She feels well today. Mastitis is improving. She is continuing to pump but dumping breast milk as she was advied previously. She is eager to return home today. rigth breast is improving. She is being discharged in stable condition witj recommendation to continue oral abx. Return to ER in case of any worsening of symptoms. Physical Exam Narrative: General: No acute distress, AO x3 HEENT: PERRLA, pupils bilaterally equal and reactive, pallors not present Chest: Normal vesicular breath sounds, no added sounds, equal good air entry bilaterally CVS: S1-S2 regular, no murmurs, no tachycardia, no gallops, no rubs Abdomen: Soft, nontender, no organomegaly, bowel sounds present Neuro: No focal deficits, no facial deformity, AO x3, power 5/5 in all limbs Discharge Data Studies Completed and Pending Completed Studies During Hospitalization Category Date Time Status CT abdomen pelvis w con* [id number] Stat Cat Scan 04/20/23 18:04 Completed XR chest 1V portable [id number] Urgent Exams 04/20/23 15:57 Completed US breast RT complete [id number] Urgent Ultrasound 04/22/23 17:19 Completed US pelvic complete* [id number] Stat Ultrasound 04/21/23 09:04 Completed Pending at discharge Category Date Time Status Blood Culture Stat Lab 04/20/23 16:44 Results Radiology Impressions Chest X-Ray 04/20/23 15:57 IMPRESSION: No acute findings. Abdomen/Pelvis CT 04/20/23 18:04 IMPRESSION: 1. The uterus is enlarged consistent with status. No fluid collection associated with the uterus. 2. No abscess. Pelvis Ultrasound 04/21/23 09:04 Impression: 1. Bulky uterus, heterogenous myometrial echogenicity 2. Endometrial fluid, no retained products of conception 3. Normal bilateral ovaries Breast Ultrasound 04/22/23 17:19 IMPRESSION: No evidence of abscess. Findings suspicious for mastitis. Laboratory Results WBC 5.26 10^3/uL (3.29-11.43) 04/23/23 04:37 RBC 3.98 10^6/uL (3.85-5.65) 04/23/23 04:37 Hgb 8.50 g/dL (11.27-16.99) L 04/23/23 04:37 Hct 29.7 % (36-47) L 04/23/23 04:37 MCV 74.6 fl (85-98) L 04/23/23 04:37 MCH 21.4 pg (27-33) L 04/23/23 04:37 MCHC 28.6 g/dL (30-55) L D 04/23/23 04:37 RDW 21.7 % (12.1-15.1) H 04/23/23 04:37 Plt Count 445 10^3/cmm (157-399) H 04/23/23 04:37 MPV 10.7 fL (7.4-10.4) H 04/23/23 04:37 Neut % (Auto) 55.1 % 04/23/23 04:37 Lymph % (Auto) 28.1 % 04/23/23 04:37 [place] % (Auto) 5.5 % 04/23/23 04:37 Eos % (Auto) 7.8 % 04/23/23 04:37 Baso % (Auto) 0.6 % 04/23/23 04:37 Neut # (Auto) 2.90 10^3/uL (1.8-7.7) 04/23/23 04:37 Lymph # (Auto) 1.5 10^3/uL (0.8-4.8) 04/23/23 04:37 [place] # (Auto) 0.3 10^3/uL (0.2-0.9) 04/23/23 04:37 Eos # (Auto) 0.4 10^3/uL (0.0-0.8) 04/23/23 04:37 Baso # (Auto) 0.0 10^3/uL (0.0-0.1) 04/23/23 04:37 Nucleated RBC % (auto) 0 % 04/23/23 04:37 Nucleated RBCs # 0.0 /100WBC 04/23/23 04:37 D-Dimer 2.12 ug/mLFEU (0-0.59) H 04/20/23 21:39 Sodium 141 mmol/L (136-145) 04/23/23 04:37 Potassium 3.4 mmol/L (3.5-5.1) L 04/23/23 04:37 Chloride 109 mmol/L (98-107) H 04/23/23 04:37 Carbon Dioxide 18 mmol/L (22-29) L 04/23/23 04:37 Anion Gap 17.4 (5-19) 04/23/23 04:37 BUN 8 mg/dL (6-20) 04/23/23 04:37 Creatinine 0.6 mg/dL (0.5-0.9) 04/23/23 04:37 GFR Calculation 125.0 mL/min (90-130) 04/23/23 04:37 Glucose 97 mg/dL (65-115) 04/23/23 04:37 Calculated Osmolality 290 mOsm/kg (285-295) 04/23/23 04:37 Lactic Acid 1.1 mmol/L (0.5-2.2) 04/20/23 16:44 Calcium 9.0 mg/dL (8.5-10.5) 04/23/23 04:37 Magnesium 2.0 mg/dL (1.7-2.3) 04/22/23 04:37 Iron 8 ug/dL (37-145) L 04/20/23 21:39 Iron Cancelled 04/20/23 21:39 TIBC 280 mcg/dl 04/20/23 21:39 % Saturation 2.8 % (20-50) L 04/20/23 21:39 Unsat Iron Binding 272 ug/dL (112-347) 04/20/23 21:39 Ferritin 86 ng/mL (15-150) 04/20/23 21:39 Total Bilirubin 0.6 mg/dL (0.15-1.2) 04/20/23 16:30 AST 32 U/L (0-32) 04/20/23 16:30 ALT 20 U/L (0-33) 04/20/23 16:30 Alkaline Phosphatase 119 U/L (35-105) H 04/20/23 16:30 C-Reactive Protein 129.0 mg/L (0.0-4.9) H 04/21/23 05:11 Total Protein 7.9 g/dL (6.6-8.7) 04/20/23 16:30 Albumin 4.1 g/dL (3.5-5.2) 04/20/23 16:30 Globulin 3.8 g/dL (1.3-4.6) 04/20/23 16:30 Procalcitonin 0.17 ng/mL (0-0.5) 04/20/23 21:39 TSH 0.70 uIU/mL (0.27-4.20) 04/20/23 21:39 Urine Color Yellow (Yellow) 04/20/23 17:06 Urine Appearance Hazy (CLEAR) A 04/20/23 17:06 Urine pH 8 (5-7) H 04/20/23 17:06 Ur Specific [place] 1.005 (1.005-1.030) 04/20/23 17:06 Urine Protein 3+ (Negative) H 04/20/23 17:06 Urine Glucose (UA) Norm (Normal) 04/20/23 17:06 Urine Ketones Negative (Negative) 04/20/23 17:06 Urine Blood 3+ (Negative) H 04/20/23 17:06 Urine Nitrate Negative (Negative) 04/20/23 17:06 Urine Bilirubin Neg (Negative) 04/20/23 17:06 Prot Sulfosalicylic Acd Positive (Negative) 04/20/23 17:06 Urine Urobilinogen 1 mg/dL (Negative) H 04/20/23 17:06 Ur Leukocyte Esterase 2+ (Negative) H 04/20/23 17:06 Urine RBC 25-40 /hpf (0-2) H 04/20/23 17:06 Urine WBC 55-80 /hpf (0-5) H 04/20/23 17:06 Ur Squamous Epith Cells 0-4 /hpf (0-5) H 04/20/23 17:06 Amorphous Sediment 1+ /hpf 04/20/23 17:06 Urine Bacteria 3+ /hpf (NONE) H 04/20/23 17:06 Coarse Granular Casts 0-4 /lpf H 04/20/23 17:06 Urine Mucus 1+ /hpf 04/20/23 17:06 Vancomycin Trough 9.3 ug/mL (10-15) L 04/23/23 04:37 Influenza Type A Ag negative (Negative) 04/20/23 17:31 Influenza Type B Ag negative (Negative) 04/20/23 17:31 SARS-CoV-2 Ag (Rapid) negative (Negative) 04/20/23 17:31 Blood Type O Positive 04/22/23 08:30 Rho(D) Type Rh positive 04/22/23 08:30 Antibody Screen Negative 04/22/23 08:30 Crossmatch See Detail 04/22/23 08:30 Vitals Last Vital Signs Temp 98.4 F 04/23/23 14:45 Pulse 81 04/23/23 14:45 Resp 16 04/23/23 14:45 BP 120/81 04/23/23 14:45 Pulse Ox 99 04/23/23 14:45 O2 Del Method Room Air 04/23/23 11:36 Discharge Plan Discharge Patient Disposition: Home Condition: Stable Prescriptions: New amoxicillin-pot clavulanate 875-125 mg tablet 1 tab PO BID 10 Days Qty: 20 0RF levofloxacin 750 mg tablet 750 mg PO DAILY 10 Days Qty: 10 0RF Continued acetaminophen 500 mg Tablet 1,000 mg PO Q6H PRN (Reason: Pain) Midol 500-25 mg Tablet 2 tab PO Q6H PRN (Reason: Pain) ibuprofen 200 mg Tablet 600 mg PO Q6H PRN (Reason: Pain) metoprolol succinate 25 mg tablet extended release 24 hr 25 mg PO DAILY Qty: 30 0RF hydrocodone-acetaminophen 5-325 mg tablet 1 tab PO Q6H PRN (Reason: pain) Qty: 8 0RF naproxen [Naprosyn] 500 mg tablet 500 mg PO BID PRN (Reason: pain) Qty: 20 0RF Flintstones with Extra Iron 18 mg iron Tablet,Chewable 2 tab PO DAILY Discharge Orders: Discharge Order (Routine); Ordered 04/23/23 Ordered By: Imelda Arteaga Referrals: [place] Watts MD [Physician] - (2 weeks PP, establish care, 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 ) Rosita Crowell MD [Primary Care Provider] - 04/30/23 1:00 pm () Discharge Diet: Usual diet Discharge Activity: Resume usual activity Patient Instructions: Amoxicillin/Clavulanate Potassium (By mouth), Levofloxacin (By mouth), Mastitis (DC), Opioid Safety Discharge Attestations Time Spent in Discharge Care*: greater than 30 min Quality Metrics Clinical Quality Measures [ No reported AMI, CVA or VTE this stay] Coding Level of Care Code Acute Code for Chg Fwd Diagnoses Acute cystitis N30.00 Anemia D64.9 Normal spontaneous vaginal delivery O80 Sepsis A41.9 Encounter for breast feeding counseling Z71.89 Hypokalemia E87.6 Hyponatremia E87.1 Mastitis N61.0
== END 2023-04-23 14:45 | disposition home or self-care (01) | DRG 776 ==
LOC: ER 17:53 → MEDSURG 20:24
PROVIDERS: Internal Medicine; Physician Assistant; Admitting Provider Internal Medicine; Emergency Provider Emergency Medicine; PCP Family Medicine; Visit Provider Student in an Organized Health Care Education/Training Program
DX: O86.22 Infection of bladder following delivery (principal); N30.00 Acute cystitis without hematuria; E87.1 Hypo-osmolality and hyponatremia; O99.03 Anemia complicating the puerperium; D64.9 Anemia, unspecified; E86.0 Dehydration; E87.6 Hypokalemia; O91.22 Nonpurulent mastitis associated with the puerperium; O99.285 Endocrine, nutritional and metabolic diseases complicating the puerperium
CPT/HCPCS: 36415; 36430; 71045; 74177; 76641; 76642; 76856; 80048; 80053; 80202; 81001; 82728; 83540; 83550; 83605; 83735; 84145; 84443; 85025; 85378; 86140; 86850; 86900; 86920; 87040; 87086; 87426; 87804; 96365; 99285; J0696; J1756; J2543; J3370; J7030; P9016; Q9967

== ENCOUNTER 2023-08-04 11:02 | Emergency (ER) | payer MEDICAID, SELFPAY ==
[2023-08-04 11:11] VITALS: BP 138/79; PULSE 99; RESP 16; TEMP 36.9; O2SAT 98; BMI 28.7
[2023-08-04 11:16] VITALS: BP 110/82; PULSE 108; RESP 18; O2SAT 98
--- NOTE | 2023-08-04 11:32 | ED_ITS ---
HPI - Dental/Oral General: Chief complaint: Dental/Oral Stated complaint: jaw pain Time Seen by Provider: 08/04/23 11:24 History of Present Illness: 22-year-old female presents to the emerg ency department with complaints of left lower jaw pain. She states she has infection in the left lower jaw and that she has been seen by her dentist and is scheduled to have her teeth pulled in 1 month. She states she did go to the emergency department in [facility] yesterday and they did prescribe her antibiotics but nothing for her pain. She currently states her pain is a sharp intermittent pain that is a 9 out of 10 is worse with any type of eating. She denies difficulty with swallowing or breathing. She denies difficulty with phonation. She denies fevers chills or night sweats. She denies trismus Associated symptoms: Denies odynophagia Review of Systems General: Reports: 10 or more systems reviewed and unremarkable except in HPI and below ENMT: Reports: mouth pain and dental pain; Denies: odynophagia : Reports: urinary frequency and urinary urgency [facility] ED PFSH: Medical History No pertinent past medical history Surgical History No pertinent past surgical history Female Reproductive History: Date of last menstrual period: 07/25/23 Physical Exam Narrative: EXAM NARRATIVE: Constitutional: the patient appears well nourished and of normal development. Vital signs as documented. No acute distress at present. Alert and oriented-to person, place, time and situation. Head, eyes, ears, nose, mouth, throat: Normocephalic, atraumatic. Pupils-equal, round, reactive to light. No scleral icterus. Normal-appearing external ears. Normal appearing nasal turbinates, no drainage. No obvious oral lesions, posterior oropharynx without erythema or exudates. Multiple dental caries noted with gingivitis most prominent at tooth #18, 19, 20. Periapical abscess noted to tooth #19 and 20. Neck: Supple, trachea is midline, mild anterior cervical chain lymphadenopathy, no jugular venous distension, thyromegaly, or carotid bruits. Carotid upstrokes are brisk bilaterally. Lungs: clear to auscultation to all lung merlos. Symmetrical rise and fall of chest, no obvious signs of increased work of breathing at present. Cardiac: Regular rate and rhythm, positive S1, S2. No murmurs, rubs or gallops that I can appreciate Abdomen: Soft, non-tender to palpation, normal active bowel sounds to all quadrants. No palpable masses, no organomegaly and abdominal bruits. Extremities: 2+ pulses in the upper extremities that are equal bilaterally, 2+ pulses in the lower extremities that are equal bilaterally. Non-edematous. Moves all extremities well, sensation to all extremities are noted. Skin: Warm, dry, intact. Course Reevaluation(s): Reevaluation #1: I discussed the laboratory findings as well as the urine drug screen with the patient. She states she is taking clindamycin I did advise her that I would prescribe her a different antibiotic that would also treat her urinary tract infection and provide her pain medications. I advised her that she can discontinue using her clindamycin until her urinary tract infection has cleared up with the use of Bactrim. Advised her to keep her appointment and to contact her dentist to see if she can get her appointment moved to a sooner time. Time: 12:37 Vital Signs: Vital signs: Vital Signs Temperature 98.4 F 08/04/23 11:11 Pulse Rate 108 H 08/04/23 11:16 Respiratory Rate 18 08/04/23 11:16 Blood Pressure 110/82 08/04/23 11:16 Pulse Oximetry 98 08/04/23 11:16 Oxygen Delivery Me thod Room Air 08/04/23 11:16 MDM - Dental/Oral Medical Decision Making Physical exam completed and documented I will obtain a urinalysis, urine drug screen urine hCG provide the patient with Toradol intramuscular injection as well as pain medication. Differential diagnosis to include dental caries, gingivitis, periapical abscess, Vel's angina, UTI Medical Records I reviewed the patient's medical records. Lab Data I reviewed the patient's lab results. Laboratory Results HCG, Qual Negative (Negative) 08/04/23 11:43 Urine Color Yellow (Yellow) 08/04/23 11:43 Urine Appearance Clear (CLEAR) 08/04/23 11:43 Urine pH 5 (5-7) 08/04/23 11:43 Ur Specific [place] 1.025 (1.005-1.030) 08/04/23 11:43 Urine Protein 1+ (Negative) H 08/04/23 11:43 Urine Glucose (UA) Norm (Normal) 08/04/23 11:43 Urine Ketones 1+ (Negative) H 08/04/23 11:43 Urine Blood 3+ (Negative) H 08/04/23 11:43 Urine Nitrate Negative (Negative) 08/04/23 11:43 Urine Bilirubin 1+ (Negative) H 08/04/23 11:43 Urine Urobilinogen 1 mg/dL (Negative) H 08/04/23 11:43 Ur Leukocyte Esterase Trace (Negative) H 08/04/23 11:43 Urine RBC 5-10 /hpf (0-2) H 08/04/23 11:43 Urine WBC 0-4 /hpf (0-5) H 08/04/23 11:43 Ur Squamous Epith Cells 5-10 /hpf (0-5) H 08/04/23 11:43 Amorphous Sediment Not Reportable 08/04/23 11:43 Urine Bacteria 1+ /hpf (NONE) H 08/04/23 11:43 Urine Opiates Screen Negative ng/mL (Negative) 08/04/23 11:43 Ur Barbiturates Screen Negative ng/mL (Negative) 08/04/23 11:43 Ur Phencyclidine Scrn Negative ng/mL (Negative) 08/04/23 11:43 Ur Amphetamines Screen Negative ng/mL (Negative) 08/04/23 11:43 U Benzodiazepines Scrn Positive ng/mL (Negative) H 08/04/23 11:43 Urine Cocaine Screen Negative ng/mL (Negative) 08/04/23 11:43 U Marijuana (THC) Screen Positive ng/mL (Negative) H 08/04/23 11:43 No radiology studies performed this visit Discharge Plan Discharge Patient Disposition: Home Clinical Impression: Pain, dental, Abscess, dental, UTI (urinary tract infection) Condition: Stable Prescriptions: New hydrocodone-acetaminophen 5-325 mg tablet 1 tab PO Q8H PRN (Reason: pain) Qty: 14 0RF Rx Instructions: DO NOT FILL PRESCRIPTION UNLESS ACCOMPANYING ANTIBIOTIC PRESCRIPTION FILLED sulfamethoxazole-trimethoprim [Bactrim DS] 800-160 mg tablet 1 tab PO BID 7 Days Qty: 14 0RF No Action acetaminophen 500 mg Tablet 1,000 mg PO Q6H PRN (Reason: Pain) Midol 500-25 mg Tablet 2 tab PO Q6H PRN (Reason: Pain) ibuprofen 200 mg Tablet 600 mg PO Q6H PRN (Reason: Pain) metoprolol succinate 25 mg tablet extended release 24 hr 25 mg PO DAILY Qty: 30 0RF hydrocodone-acetaminophen 5-325 mg tablet 1 tab PO Q6H PRN (Reason: pain) Qty: 8 0RF naproxen [Naprosyn] 500 mg tablet 500 mg PO BID PRN (Reason: pain) Qty: 20 0RF [place] with Extra Iron 18 mg iron Tablet,Chewable 2 tab PO DAILY Discharge Orders: Discharge ED (Routine); Ordered 08/04/23 Ordered By: Macho Tejeda Referrals: Rosita Crowell MD [Primary Care Provider] - Discharge Diet: Advance as tolerated Discharge Activity: Resume usual activity Patient Instructions: Opioid Safety, Pain Management Activity Restrictions/Additional Instructions: Activity Restrictions/Additional Instructions: Thank you for choosing [facility] for your healthcare needs today. Please realize that you were seen in the Emergency Department and that we are providing you with an emergency medical screening exam and this may not be a complete and all inclusive of all the testing and or medical work-up that you may need to determine your ailment or severity of your illness. It is very important that you follow-up as instructed with your Primary care provider or Specialist for additional evaluation and to discuss your medical treatment plan. You may return to the Emergency Department should you have concerns or if your condition changes or worsens in any way. Coding Level of Care Code ED Dent Remover for Katherine Lees
[2023-08-04] MEDS: ketorolac 60 mg/2 mL INJ IM (11:42)
[2023-08-04 11:52] LABS: HCG Qualitative Urine. Negative (Negative)
[2023-08-04 12:00] LABS: Blood Urine 3+ (Negative); Glucose Urine UA Norm (Normal); Ketones Urine 1+ (Negative); Nitrate Urine Negative (Negative); Protein Urine 1+ (Negative); Specific Gravity, Urine 1.025 (1.005-1.030); Urine Appearance Clear (CLEAR); Urine Color Yellow (Yellow); pH Urine 5 (5-7)
[2023-08-04 12:01] LABS: Add Urine Microscopic? YES; Bilirubin Urine 1+ (Negative); Leukocyte Esterase Urine Trace (Negative); Urobilinogen Urine 1 mg/dL (Negative)
[2023-08-04 12:03] LABS: Add Urine Culture? No; Bacteria Urine 1+ /hpf; WBC Urine 0-4 /hpf (0-5)
[2023-08-04 12:04] LABS: Amphetamines Screen Urine Negative (Negative); Barbiturates Screen Urine Negative (Negative); Benzodiazepines Screen Urine Positive (Negative); Cocaine Screen Urine Negative (Negative); Opiate Screen Urine Negative (Negative); PCP Screen Urine Negative (Negative); THC Screen Urine Positive (Negative)
[2023-08-04 12:48] VITALS: BP 112/80; PULSE 95; RESP 16; TEMP 36.9; O2SAT 100
== END 2023-08-04 12:50 | disposition home or self-care (01) ==
PROVIDERS: Emergency Provider Internal Medicine; PCP Family Medicine
DX: K04.7 Periapical abscess without sinus (principal); N39.0 Urinary tract infection, site not specified
CPT/HCPCS: 80306; 81001; 81025; 96372; 99284; J1885

== ENCOUNTER 2024-11-27 07:55 | Outpatient (CLI) | payer MEDICAID, SELFPAY ==
[2024-11-27 08:00] VITALS: BMI 31.8
[2024-11-27 08:09] VITALS: BP 108/59; PULSE 73
[2024-11-27 08:24] VITALS: BP 104/58; PULSE 71
[2024-11-27 08:30] LABS: Glucose Urine UA Negative (Normal); Nitrate Urine Negative (Negative); Specific Gravity, Urine 1.015 (1.005-1.030)
[2024-11-27 08:39] VITALS: BP 101/57; PULSE 71
[2024-11-27 08:54] VITALS: BP 97/58; PULSE 72
[2024-11-27 09:02] VITALS: BP 97/58; PULSE 72; RESP 16; O2SAT 98
[2024-11-27 09:52] LABS: PCP Screen Urine Negative (Negative)
== END 2024-11-27 09:02 | disposition home or self-care (01) ==
LOC: OPOB 08:05 → OBGYN 08:06
PROVIDERS: PCP Family Medicine; Visit Provider Family Medicine
DX: O26.899 Other specified pregnancy related conditions, unspecified trimester (principal); Z3A.00 Weeks of gestation of pregnancy not specified; R42 Dizziness and giddiness
CPT/HCPCS: 80306; 81001; 99211

== ENCOUNTER 2025-02-24 02:50 | Inpatient (IN) | payer MEDICAID, SELFPAY ==
[2025-02-24] VITALS (94 sets, daily range): BP systolic 111–187; BP diastolic 67–101; PULSE 62–139; RESP 15–20; TEMP 36.3–37; O2SAT 90–100; BMI 35.9
[2025-02-24 03:12] LABS: Hematocrit 24.9 % (36-47); Hemoglobin 7.00 g/dL (11.27-16.99); Mean Corpuscular HGB Conc 28.1 g/dL (30-55); Mean Corpuscular Hemoglobin 19.2 pg (27-33); Mean Corpuscular Volume 68.2 fl (85-98); Nucleated Red Blood Cells % 1.3 %; Platelet Count 243 10^3/cmm (157-399); Red Blood Count 3.65 10^6/uL (3.85-5.65); White Blood Count 13.44 10^3/uL (3.29-11.43)
[2025-02-24 03:31] LABS: PCP Screen Urine Negative (Negative)
[2025-02-24 03:43] LABS: Slide Review Slide Review Perform
--- NOTE | 2025-02-24 06:24 | ANES.PREANE2 ---
Pre-Anesthetic Assessment Height/Weight: Height 1.68 m Weight 100.924 kg Temp Pulse BP Pulse Ox O2 Del Method 98.1 F 80 144/79 100 Room Air 02/24/25 04:48 02/24/25 06:17 02/24/25 06:17 02/24/25 06:17 02/24/25 02:13 Preop Diagnosis: Labor pain KATH Was Beta Ros taken within 24 hours: N/A Was Clonidine taken within 24 hours: N/A Social No alcohol and No tobacco Exam alert, oriented x 3, clear to auscultation bilaterally and regular rate & rhythm Airway Submandibular: within normal limits Cervical ROM: within normal limits Mallampati: Class II Dentition: full Comments: Comments: Edentulous History/ROS No significant history except as noted and No significant complaints Pulmonary None reported CV/HEM Anemia. Transfusion 2 weeks ago None reported Hepatic None reported GI Gastroesophageal Reflux Disease Metabolic None reported Musc/skel None reported Neuropsych None reported Anesthetic Plan ASA status: 2 Anesthesia: Anesthesia Evaluation and Regional (specify below) Other: KATH Risk of > 500 ml blood loss (7ml/kg in children): No Medications/Allergies Allergies Allergy/AdvReac Type Severity Reaction Status Date / Time mushroom Allergy ALGY-Anaphy Verified 02/24/25 03:13 laxis Current Medications Generic Name Dose Route Start Last Admin Trade Name Freq PRN Reason Stop Dose Admin Sodium Chloride 1,000 mls @ 999 mls/hr 02/24/25 02:52 02/24/25 05:17 Sodium Chloride 0.9% IV 999 mls/hr .Q1H1M PRN Administration See label comments PFSH Anesthesia Medical History No pertinent past medical history Surgical History No pertinent past surgical history Female Reproductive History : 2 Data Anesthesia 02/24/25 03:00 Short CBC 02/24/25 Range/Units 03:00 WBC 13.44 H (3.29-11.43) 10^3/uL Hgb 7.00 L (11.27-16.99) g/dL Hct 24.9 L (36-47) % MCV 68.2 L (85-98) fl Plt Count 243 (157-399) 10^3/cmm Neut % (Auto) 72.7 % Neut # (Auto) 9.77 H (1.8-7.7) 10^3/uL Blood Bank 02/24/25 03:00 Blood Type O Positive Rho(D) Type Rh positive Antibody Screen Positive
--- NOTE | 2025-02-24 06:26 | ANES.PROC ---
Anesthesia Procedures Procedure/Date: 02/24/25 Epidural: Time Out Performed: Yes Consents Signed: Procedure Consent Consent: requested by attending/covering physician, from patient, risks and benefits reviewed and patient agrees to proceed Lumbar Level: L3-L4 Epidural position: sitting Epidural procedure: sterile prep of area, 1% lidocaine to numb the area, 18 g needle, neg for paresthesia, test dose given, 1.5% xylocaine 1:200k epi (4cc), 0.2% Ropivacaine bolus ml (4cc and Fentanyl 100mcg), placed PCEA, no systemic response, sterile dressing applied, L.U.D. no apparent complications and 0.2% Ropiavacaine @ mls/hr (13cc/hour) Additional Comments: Pt tolerated well
[2025-02-24] MEDS: ROPivacaine premix 200 MG/100 ML PREMIX 13 MG EPIDURAL ×2 (06:28→10:25)
--- NOTE | 2025-02-24 08:27 | P.HP_ITS ---
Providers/Chief Complaint 2 Admitting Physician: Joaquín Brock MD Primary Care Provider: Rosita Crowell MD Chief Complaint: ctx 6min History of Present Illness Leidy Montes is a 24 year old G2, P1 at 40.1 weeks gestation by her history. Her is complicated by severe anemia status post transfusion x 2 during this and history of transfusions after prior delivery. The patient began to have contractions at approximately 9 PM on the evening of 02/23/2025. The contractions continued to strengthen and she presented to labor delivery triage early on the morning of 02/24/2025. She was noted to be 5 cm at that time. She had been 2 cm dilated in clinic last week. The patient had been seeing Dr. Padilla in [place], however did not think that she could make it there, so stopped at [facility]. The patient denies any chest pains, shortness of breath, nausea, vomiting, diarrhea, constipation, dysuria, fever, leakage of fluid. The patient has had some mild bloody show. The patient denies any gestational diabetes, high blood pressure issues and she states that her GBS was negative. She denies any other complications with other than needing a blood transfusion. She stated that she was having labor issues and was given 2 units of blood a couple months ago. Her hemoglobin was down to 5. She is not able to tolerate any iron by mouth as it makes her throw up. The patient has a history of blood transfusion after her last delivery as well as an iron transfusion. Currently I do not have records to review at the time of dictation. We are working on obtaining them from [place]. Medications/Allergies Allergies Allergy/AdvReac Type Severity Reaction Status Date / Time mushroom Allergy ALGY-Anaphy Verified 02/24/25 03:13 laxis PFSH Acute 2 PFSH: Medical History (Updated 02/24/25 @ 08:31 by Joaquín Brock MD) No pertinent past medical history Surgical History (Updated 02/24/25 @ 08:31 by Joaquín Brock MD) History of knee surgery Hx of tonsillectomy Female Reproductive History: : 2 Vitals/I&O/Wt Last Vital Signs Temp 97.3 F L 02/24/25 07:21 Pulse 73 02/24/25 08:22 BP 145/85 02/24/25 08:22 Pulse Ox 97 02/24/25 07:17 O2 Del Method Room Air 02/24/25 02:13 02/23/25 02/24/25 02/24/25 22:59 06:59 14:59 Intake Total 1000 / 1000 Balance 1000 / 1000 Weight last 48 hrs Weight 222 lb 8 oz Physical Exam 2 Narrative: General: Alert and oriented x3 Eyes: Pupils equal round and reactive to light and accommodation Mouth: Mucous membranes moist, pharynx non-erythematous Cardiac: Regular rate and rhythm without murmurs Lungs: Clear to auscultation bilaterally without wheezes, crackles or rhonchi Abdomen: Soft, non-tender, fundus consistent with gestational age Extremities: Trace edema in the bilateral lower extremities Data 02/24/25 03:00 A&P Assessment and plan 1. Intrauterine : Patient is doing well overall at this time. She has changed from 5 cm up to 6.5 cm on her own. She now has a laboring epidural. She is currently intact. We will get blood work for preeclamptic workup secondary to blood pressures in the 140s to 150s while here. These were while she was having more pain with contractions. Currently she denies any headaches, chest pains, flashes of light or other preeclamptic symptoms. We will have 2 units of red blood cells on standby due to her underlying anemia. We will plan to give medications like TXA early if there is any concern for bleeding. The patient is currently kate every 4 to 6 minutes and making slow change. We will go ahead and add IV Pitocin to augment her labor. The patient is in agreement with current plan of care. 2. Anemia: PDMP PDMP Reviewed: Not Reviewed Attestations 2 Medical Necessity Statement*: The patient will be here for greater than 2 midnights due to routine intrapartum and management of labor and delivery. Coding Level of Care Code Acute Code for Chg Fwd Diagnoses Intrauterine Z34.90 Anemia D64.9
[2025-02-24] MEDS: oxytocin 30 UNIT/500 ML BAG IV (09:08)
[2025-02-24 09:38] LABS: Alanine Aminotransferase 7 U/L (0-33); Albumin Level 3.0 g/dL (3.5-5.2); Alkaline Phosphatase 152 U/L (35-105); Anion Gap 17.8 (5-19); Aspartate Amino Transferase 12 U/L (0-32); Blood Urea Nitrogen 7 mg/dL (6-20); Calcium 8.3 mg/dL (8.5-10.5); Carbon Dioxide 18 mmol/L (22-29); Chloride 106 mmol/L (98-107); Globulin 2.8 g/dL (1.3-4.6); Glucose 86 mg/dL (65-115); Osmolality Calculated 283 mOsm/kg (285-295); Potassium 3.8 mmol/L (3.5-5.1); Sodium 138 mmol/L (136-145); Total Protein 5.8 g/dL (6.6-8.7); Uric Acid 6.3 mg/dL (2.4-5.7)
[2025-02-24 09:55] LABS: UPRO/UCREAT Ratio 3.31 mg/mg CR
[2025-02-24] MEDS: magnesium sulfate premix 20 GM/500 ML BAG IV ×2 (10:25→20:32)
[2025-02-24] MEDS: magnesium sulfate premix 4 GM/100 ML PREMIX IV (10:25)
--- NOTE | 2025-02-24 11:18 | PM.MISC ---
Miscellaneous Note Note: The patient's blood pressures were noted to be elevated in the 140s to 150s systolic. The patient has not had any symptoms with these, however we went ahead and checked the preeclamptic labs and her urine protein creatinine ratio returned at 3.3. Because of this and her continued elevated blood pressures, we decided to start her on IV magnesium for prophylaxis.
[2025-02-24] MEDS: tranexamic acid 1,000 MG/100 ML PREMIX 600 MG IV (11:40)
--- NOTE | 2025-02-24 11:57 | P.PCNOB_ITS ---
Delivery Note: Date of delivery: February 24, 2025 Pre-delivery diagnoses: 1. Intrauterine at 40.1 weeks gestation 2. Severe anemia 3. Preeclampsia Post-delivery diagnoses: 1. Intrauterine status post s pontaneous vaginal delivery at 40.1 weeks gestation 2. Severe anemia 3. Preeclampsia 4. Delivery of healthy infant male phylicia wattersng 8 pounds 6 ounces with Apgars of 7 and 9 5. Meconium stained fluid Procedure: Spontaneous vaginal delivery Delivering Physician: Joaquín Brock MD Estimated blood loss (mL): 250 Findings: 1. Healthy infant male weighing 8 pound s 6 ounces with Apgars of 7 and 9 2. Intact placenta with central umbilic al cord insertion site. Pre-Delivery Course: Leidy Montes is a 24 year old G2 now P2 s/p spontaneous vaginal delivery at 40.1 weeks gestation by her history. Her was complicated by severe anemia status post transfusion x 2 during this and history of transfusions after prior delivery, now with preeclampsia. The patient began to have contractions at approximately 9 PM on the evening of 02/23/2025. The contractions continued to strengthen and she presented to labor delivery triage early on the morning of 02/24/2025. She was noted to be 5 cm at that time. She had been 2 cm dilated in clinic last week. The patient had been seeing Dr. Padilla in [place], however did not think that she could make it there, so stopped at [facility]. The patient denied any chest pains, shortness of breath, nausea, vomiting, diarrhea, constipation, dysuria, fever, leakage of fluid. The patient had some mild bloody show. The patient denied any gestational diabetes, high blood pressure issues and she states that her GBS was negative. She denies any other complications with other than needing a blood transfusion. She stated that she was having labor issues and was given 2 units of blood a couple months ago. Her hemoglobin was down to 5. She is not able to tolerate any iron by mouth as it makes her throw up. The patient has a history of blood transfusion after her last delivery as well as an iron transfusion. After admission, the patient's blood pressures began to rise up into the 140s to 170s systolic. She did not require any labetalol, however a preeclamptic workup was done and her urine protein creatinine ratio was 3.3. Because of this she was started on magnesium for seizure prophylaxis. The patient was kate every 4 to 6 minutes on her own, however her change was slow overall. In order to augment labor, IV Pitocin was added. The patient began to contract more regularly and made change. She was 9 cm dilated and AROM was performed at 10:57 AM on 02/24/2025. Meconium stained fluid was noted. The patient was complete by 11:26 AM. Delivery: The patient began pushing at 11:26 AM on 02/24/2025. The patient pushed well and the delivered in the OA position at 11:35 AM on 02/24/2025. A nuchal cord was noted but was tight so the was delivered through the cord. The right shoulder was anterior shoulder and it delivered with mild downward pressure. The rest of the infant delivered with maternal pushing. The 's mouth and nose were bulb suction by myself and the took breaths immediately upon delivery. The infant was placed on the mother's chest where the nurses were waiting to care for him. The cord was wrapped around the 's neck as well as body. The cord was clamped upon itself and cut by the infant's father approximately 1 minute after delivery. Cord blood was obtained and the cord was drained of blood. Traction was placed on the umbilical cord and uterine massage was carried out. The placenta delivered without complication and 11:39 AM on 02/24/2025. The placenta was noted to be intact with a central umbilical cord insertion site. IV Pitocin and TXA were given. The cervix was inspected and no lacerations were noted. Uterine massage was carried out. The patient's bleeding was initially moderate and slowed down to mild with this. The vaginal wall was inspected and a few abrasions were noted. They were located on the left upper labia as well as the left lower labia. These were not bleeding and repair was not necessary. Currently both the patient and are doing well. Estimated blood loss was 250 mL. Post-Delivery Status: We will plan to continue with IV magnesium and watch for complications of preeclampsia. Will also watch her bleeding closely and plan for a transfusion if it is heavy or if her hemoglobin drops significantly on checks. History History History 2 Term 2 0 Miscarriages/Ectopic 0 Living Children 2 Past Pregnancies Del. Date GA/Weeks Outcome Route Wt Inf Gender Labor Lgth Comp. Anesth esia Location 02/24/25 40 live - full term Vaginal 8 lb 6 oz Male 14 hr Ot her regional [facility] - [place] Delivery Date: 02/24/25 Last Updated by: Joaquín Brock MD Anemia, preeclampsia A&P Assessment and plan 1. Spontaneous vaginal delivery: 2. Anemia: 3. Preeclampsia: PDMP PDMP Reviewed: Not Reviewed Coding Level of Care Code Acute Code for Chg Fwd Diagnoses Spontaneous vaginal delivery O80 Anemia D64.9 Preeclampsia O14.90
[2025-02-24] MEDS: HYDROcodone-acetaminophen 5-325 mg Tablet PO ×2 (12:09→21:38)
[2025-02-24] MEDS: benzocaine-menthol 78 gm Canister 1 SPRAY TOPICAL (13:39)
--- NOTE | 2025-02-24 14:50 | PC.NURSE ---
candace care performed. pad, gown, and bed linens changed.
[2025-02-24 16:50] LABS: Hematocrit 22.4 % (36-47); Mean Corpuscular HGB Conc 27.7 g/dL (30-55); Mean Corpuscular Hemoglobin 19.4 pg (27-33); Mean Corpuscular Volume 70.2 fl (85-98); Platelet Count 232 10^3/cmm (157-399); Red Blood Count 3.19 10^6/uL (3.85-5.65); White Blood Count 17.97 10^3/uL (3.29-11.43)
[2025-02-24 16:52] LABS: Hemoglobin 6.20 g/dL (11.27-16.99)
[2025-02-24 17:24] LABS: Magnesium Level (OB Only) 4.7 mg/dL (5.0-7.5)
[2025-02-24 23:25] LABS: Magnesium Level (OB Only) 6.0 mg/dL (5.0-7.5)
[2025-02-25] VITALS (14 sets, daily range): BP systolic 111–142; BP diastolic 64–91; PULSE 63–88; RESP 15–16; TEMP 36.6–36.8; O2SAT 97–98
[2025-02-25] MEDS: PRENATAL VIT NO.130/IRON/FOLIC 1 EACH TABLET PO (04:09)
[2025-02-25 05:17] LABS: Hematocrit 23.8 % (36-47); Hemoglobin 6.80 g/dL (11.27-16.99); Mean Corpuscular HGB Conc 28.6 g/dL (30-55); Mean Corpuscular Hemoglobin 20.5 pg (27-33); Mean Corpuscular Volume 71.7 fl (85-98); Nucleated Red Blood Cells % 0.8 %; Platelet Count 187 10^3/cmm (157-399); Red Blood Count 3.32 10^6/uL (3.85-5.65); White Blood Count 10.38 10^3/uL (3.29-11.43)
[2025-02-25 05:40] LABS: Magnesium Level (OB Only) 6.0 mg/dL (5.0-7.5)
[2025-02-25] MEDS: magnesium sulfate premix 20 GM/500 ML BAG IV (06:41)
[2025-02-25] MEDS: HYDROcodone-acetaminophen 5-325 mg Tablet PO ×3 (06:55→21:42)
[2025-02-25] MEDS: iron sucrose 200 MG in sodium chloride 0.9% (100 ml) 100 ML IV (07:43)
--- NOTE | 2025-02-25 13:18 | ANE.PACU2 ---
Inpatient post-anesthesia follow up: Airway intact: Yes Vital signs: Temperature 98.4 F Pulse Rate 99 Respiratory Rate 18 Blood Pressure 143/87 Pulse Oximetry 98 Oxygen Delivery Me thod Room Air Oxygen Flow Rate Fraction of Inspir ed Oxygen Hydration adequate: Yes Nausea and vomiting: No Pain level: 1 Mental status: Baseline Epidural Start/End: Epidural Start Date: 02/24/25 Epidural Start Time: 06:02 Epidural End Date: 02/24/25 Epidural End Time: 15:04
--- NOTE | 2025-02-25 14:09 | P.PN_ITS ---
Subjective 2 Subjective: The patient is doing well today. She was on IV magnesium for 24 hours. She is off of it now and starting to feel better. She is ambulating, voiding, passing gas and tolerating food by mouth. She has had some pain with cramping. Her bleeding is slowing down well. She tolerated the iron infusion and 1 unit of packed red blood cells well. Vitals/I&O/Wt Last Vital Signs Temp 98.0 F 02/25/25 12:08 Pulse 64 02/25/25 12:08 Resp 16 02/25/25 06:00 BP 119/78 02/25/25 12:08 Pulse Ox 98 02/25/25 06:00 O2 Del Method Room Air 02/25/25 06:00 02/24/25 02/25/25 02/25/25 22:59 06:59 14:59 Intake Total 1481.25 / 3235.417 1500 / 4735.417 Output Total 2050 / 2475 3025 / 5500 1300 / 1300 Balance -568.75 / 760.417 -1525 / -764.583 -1300 / -1300 Weight last 48 hrs Weight 222 lb 8 oz Physical Exam 2 Narrative: General: Alert and oriented x3 Cardiac: Regular rate and rhythm without murmurs Lungs: Clear to auscultation bilaterally without wheezes, crackles or rhonchi Abdomen: Soft, mild to moderate tenderness over the uterus. The uterus is firm and 2 cm below the umbilicus. Extremities: Trace to +1 edema in the bilateral lower extremities Urinary Catheter Management: Rodriguez Latex: Cath Placed During This Visit: yes, but has since been removed by the nurse Reason for Continuing Indwelling Catheter: Decision to DC Catheter Urinary Catheter Date of Insertion: 02/24/25 Urinary Catheter Time of Insertion: 11:50 Date Urinary Catheter Removed: 02/25/25 Time Urinary Catheter Discontinued: 11:50 Data 02/25/25 04:50 02/24/25 08:55 A&P Assessment and plan 1. Spontaneous vaginal delivery: The patient is doing well overall status post spontaneous vaginal delivery on 02/24/2025. She had IV magnesium stopped a couple of hours ago and has been doing well so far. Her blood pressures have come down into the normal range. She is showing no signs of complications at this time after delivery. We will continue to watch for signs of complications. As long as she continues to do well, we will likely be able to discharge home tomorrow. She has received 1 unit of packed red blood cells and 1 iron transfusion today. We will plan for another iron infusion tomorrow. If she is doing well, we will plan for discharge home tomorrow. I did discuss some discharge instructions in terms of risk for syncope related to anemia as well as risk for preeclampsia when going home. The patient was advised to keep her overall activity levels decreased for the next couple of weeks to decrease this risk of complications. She should continue to ambulate however. 2. Preeclampsia: 3. Anemia: PDMP PDMP Reviewed: Not Reviewed Attestations 2 Medical Necessity Statement*: The patient continues to need inpatient care as she is improving after having preeclampsia. Her stay will cross 2 midnights. Coding Level of Care Code Acute Code for g Fwd Diagnoses Spontaneous vaginal delivery O80 Preeclampsia O14.90 Anemia D64.9
[2025-02-26] MEDS: PRENATAL VIT NO.130/IRON/FOLIC 1 EACH TABLET PO (04:54)
[2025-02-26 04:57] VITALS: BP 133/73; PULSE 71; RESP 16; TEMP 36.7; O2SAT 98
[2025-02-26 08:00] VITALS: BP 136/86; PULSE 77; RESP 16; TEMP 36.8
[2025-02-26] MEDS: iron sucrose 200 MG in sodium chloride 0.9% (100 ml) 100 ML 220 MG IV (08:00)
[2025-02-26] MEDS: HYDROcodone-acetaminophen 5-325 mg Tablet PO (12:17)
--- NOTE | 2025-02-26 14:05 | PM.OBGYPN ---
[employer] Subjective Subjective: Interval history: no c/o no bleeding, pain eating, voiding, ambulating well no dizziness, weakness, palpitations, shortness of breath caring for without any problems Labor: Station: +1 Amniotic Membrane Status: Ruptured Monitor Mode: Palpation Contraction Pattern: Regular Status: Category II Vitals/I&O/Wt Last Vital Signs Temp 98.4 F 02/26/25 14:42 Pulse 99 02/26/25 14:42 Resp 18 02/26/25 14:42 BP 143/87 02/26/25 14:42 Pulse Ox 98 02/26/25 04:57 O2 Del Method Room Air 02/26/25 04:57 Physical Exam Narrative: afebrile, VS normal comfortable, awake, alert Lungs: clear Cor: RRR Abd: soft, nontender. fundus firm Ext: no edema; nontender Pre-delivery Hgb 6.2 PP Hgb 6.8 Urinary Catheter Management: Rodriguez Latex: Cath Placed During This Visit: yes, but has since been removed by the nurse Reason for Continuing Indwelling Catheter: Decision to DC Catheter Urinary Catheter Date of Insertion: 02/24/25 Urinary Catheter Time of Insertion: 11:50 Date Urinary Catheter Removed: 02/25/25 Time Urinary Catheter Discontinued: 11:50 Data 02/25/25 04:50 02/24/25 08:55 A&P Assessment and plan 1. Spontaneous vaginal delivery: PPD #2 doing well discharge to home today instructions and precautions given call/return to ER if fever, chills, headache, blurry vision, nausea, vomiting, abdominal pain; vaginal bleeding or discharge; shortness of breath, chest pain, leg pains or swelling; inability to void, perineal pain or swelling; feelings of depression or mood changes; thoughts of suicide or harming others; inability to care for baby. Followup with her OB at [place] within 3 days 2. Anemia: patient with history of chronic severe anemia has required several transfusions before and during instructed patient to follow up with her OB within three days encouraged iron 1-2 tabs / day eat iron- and protein-rich foods call or go to ER if dizziness, weakness, chest pain, palpitations, shortness of breath PDMP PDMP Reviewed: Not Reviewed Attestations Medical Necessity Statement*: patient s/p vaginal delivery, plan to discharge to home today Coding Level of Care Code Acute Code for Chg Fwd Diagnoses Spontaneous vaginal delivery O80 Anemia D64.9
--- NOTE | 2025-02-26 14:10 | PM.OBGYDC ---
Discharge Providers COAT ROOM ATTENDANT Date of Admission: 02/24/25 02:50 Date of Discharge: 02/26/25 Attending Provider at Admission: Joaquín Brock MD Attending Provider at Discharge: Cesar Powers MD Consults: none Primary COAT ROOM ATTENDANT: Callum Landers, [place] Primary Care Provider: Rosita Crowell MD Diagnoses at Discharge Discharge Diagnosis 1. Spontaneous vaginal delivery: Details from hospital stay: 24 y.o. 40.1 w care with Callum Landers, [place] h/o severe anemia, s/p transfusions x two during this h/o x one presented to [facility] L&D c/o [facility] cx on admission was 5 cm She had elevated BPs She was dxd with preeclampsia started on MgSO4 and pitocin for labor augmentation patient delivered vaginally, no lacerations , patient did very well She had chronic anemia of Hgb of 6-7; she was asymptomatic patient was discharged to home on the second day Strict instructions were given to patient to see her OB within three days for followup care 2. Anemia: Reason for Visit Reason for Visit: ctx 6min Brief History: 24 y.o. 40.1 w care with Callum Landers, [place] h/o severe anemia, s/p transfusions x two during this h/o x one presented to [facility] L&D c/o [facility] Hospital Course Hospital Course 24 y.o. 40.1 w care with Callum Landers, [place] h/o severe anemia, s/p transfusions x two during this h/o x one presented to [facility] L&D c/o [facility] cx on admission was 5 cm She had elevated BPs She was dxd with preeclampsia started on MgSO4 and pitocin for labor augmentation patient delivered vaginally, no lacerations , patient did very well She had chronic anemia of Hgb of 6-7; she was asymptomatic patient was discharged to home on the second day Strict instructions were given to patient to see her OB within three days for followup care Information Peripartum Data: Delivery Method: Vaginal Laceration description: None Episiotomy description: None complications: none Physical Exam Narrative: afebrile, VS normal comfortable, awake, alert Lungs: clear Cor: RRR Abd: soft, nontender. fundus firm Ext: no edema; nontender Urinary Catheter Management: Rodriguez Latex: Cath Placed During This Visit: yes, but has since been removed by the nurse Reason for Continuing Indwelling Catheter: Decision to DC Catheter Urinary Catheter Date of Insertion: 02/24/25 Urinary Catheter Time of Insertion: 11:50 Date Urinary Catheter Removed: 02/25/25 Time Urinary Catheter Discontinued: 11:50 History History History 2 Term 2 0 Miscarriages/Ectopic 0 Living Children 2 Past Pregnancies Del. Date GA/Weeks Outcome Route Wt Inf Gender Labor Lgth Comp. Anesthesia Location 02/24/25 40 live - full term Vaginal 8 lb 6 oz Male 14 hr Other [facility] [place] Delivery Date: 02/24/25 Last Updated by: Joaquín Brock MD Anemia, preeclampsia Discharge Data Studies Completed and Pending Laboratory Results WBC 10.38 10^3/uL (3.29-11.43) 02/25/25 04:50 RBC 3.32 10^6/uL (3.85-5.65) L 02/25/25 04:50 Hgb 6.80 g/dL (11.27-16.99) L 02/25/25 04:50 Hct 23.8 % (36-47) L 02/25/25 04:50 MCV 71.7 fl (85-98) L 02/25/25 04:50 MCH 20.5 pg (27-33) L 02/25/25 04:50 MCHC 28.6 g/dL (30-55) L 02/25/25 04:50 RDW 23.2 % (12.1-15.1) H 02/25/25 04:50 Plt Count 187 10^3/cmm (157-399) 02/25/25 04:50 MPV Not Reportable 02/25/25 04:50 Neut % (Auto) 75.6 % 02/25/25 04:50 Lymph % (Auto) 17.6 % 02/25/25 04:50 [place] % (Auto) 4.6 % 02/25/25 04:50 Eos % (Auto) 1.2 % 02/25/25 04:50 Baso % (Auto) 0.2 % 02/25/25 04:50 Neut # (Auto) 7.85 10^3/uL (1.8-7.7) H 02/25/25 04:50 Lymph # (Auto) 1.8 10^3/uL (0.8-4.8) 02/25/25 04:50 [place] # (Auto) 0.5 10^3/uL (0.2-0.9) 02/25/25 04:50 Eos # (Auto) 0.1 10^3/uL (0.0-0.8) 02/25/25 04:50 Baso # (Auto) 0.0 10^3/uL (0.0-0.1) 02/25/25 04:50 Nucleated RBC % (auto) 0.8 % 02/25/25 04:50 Nucleated RBCs # 0.1 /100WBC 02/25/25 04:50 Sodium 138 mmol/L (136-145) 02/24/25 08:55 Potassium 3.8 mmol/L (3.5-5.1) 02/24/25 08:55 Chloride 106 mmol/L (98-107) 02/24/25 08:55 Carbon Dioxide 18 mmol/L (22-29) L 02/24/25 08:55 Anion Gap 17.8 (5-19) 02/24/25 08:55 BUN 7 mg/dL (6-20) 02/24/25 08:55 Creatinine 0.5 mg/dL (0.5-0.9) 02/24/25 08:55 GFR Calculation 151.6 mL/min (90-130) H 02/24/25 08:55 Glucose 86 mg/dL (65-115) 02/24/25 08:55 Calculated Osmolality 283 mOsm/kg (285-295) L 02/24/25 08:55 Uric Acid 6.3 mg/dL (2.4-5.7) H 02/24/25 08:55 Calcium 8.3 mg/dL (8.5-10.5) L 02/24/25 08:55 Magnesium 6.0 mg/dL (5.0-7.5) 02/25/25 04:50 Total Bilirubin 0.3 mg/dL (0.15-1.2) 02/24/25 08:55 AST 12 U/L (0-32) 02/24/25 08:55 ALT 7 U/L (0-33) 02/24/25 08:55 Alkaline Phosphatase 152 U/L (35-105) H 02/24/25 08:55 Total Protein 5.8 g/dL (6.6-8.7) L 02/24/25 08:55 Albumin 3.0 g/dL (3.5-5.2) L 02/24/25 08:55 Globulin 2.8 g/dL (1.3-4.6) 02/24/25 08:55 U Random Total Protein 520 mg/dL 02/24/25 09:00 Urine Creatinine 157 mg/dL (28-217) 02/24/25 09:00 Protein/Creatinin Ratio 3.31 mg/mg CR 02/24/25 09:00 Urine Opiates Screen Negative ng/mL (Negative) 02/24/25 02:13 Ur Barbiturates Screen Negative ng/mL (Negative) 02/24/25 02:13 Ur Phencyclidine Scrn Negative ng/mL (Negative) 02/24/25 02:13 Ur Amphetamines Screen Negative ng/mL (Negative) 02/24/25 02:13 U Benzodiazepines Scrn Negative ng/mL (Negative) 02/24/25 02:13 Urine Cocaine Screen Negative ng/mL (Negative) 02/24/25 02:13 U Marijuana (THC) Screen Negative ng/mL (Negative) 02/24/25 02:13 Blood Type O Positive 02/24/25 03:00 Rho(D) Type Rh positive 02/24/25 03:00 Antibody Screen Positive 02/24/25 03:00 Antibody Identification Anti-C 02/24/25 03:00 Antigen Identification C Antigen - NEGATIVE 02/24/25 03:00 Crossmatch See Detail 02/24/25 03:00 Procedures Performed labor augmentation vaginal delivery Vitals Last Vital Signs Temp 98.4 F 02/26/25 14:42 Pulse 99 02/26/25 14:42 Resp 18 02/26/25 14:42 BP 143/87 02/26/25 14:42 Pulse Ox 98 02/26/25 04:57 O2 Del Method Room Air 02/26/25 04:57 Results Labs OB ([facility]): Blood Type O Positive 02/24/25 Antibody Screen Positive 02/24/25 Hct, (36-47) 23.8 % L 02/25/25 Hgb, (11.27-16.99) 6.80 g/dL L 02/25/25 Rho(D) Type Rh positive 02/24/25 Plt Count, (157-399) 187 10^3/cmm 02/25/25 Uric Acid, (2.4-5.7) 6.3 mg/dL H 02/24/25 HCG, Qual, (Negative) Negative 08/04/23 Urine Opiates Screen, (Negative) Negative ng/mL 02/24/25 Ur Barbiturates Screen, (Negative) Negative ng/mL 02/24/25 Ur Phencyclidine Scrn, (Negative) Negative ng/mL 02/24/25 Ur Amphetamines Screen, (Negative) Negative ng/mL 02/24/25 U Benzodiazepines Scrn, (Negative) Negative ng/mL 02/24/25 Urine Cocaine Screen, (Negative) Negative ng/mL 02/24/25 U Marijuana (THC) Screen, (Negative) Negative ng/mL 02/24/25 Discharge Plan Discharge Patient Disposition: Xfer Short-Term Hosp Condition: Stable Prescriptions: No Action No Known Home Medications Discharge Order = DC NOW: Discharge Order (Routine); Ordered 02/26/25 Ordered By: Cesar Powers Referrals: Anthony Hall MD [Physician, COAT ROOM ATTENDANT] - 04/08/25 12:45 pm Discharge Diet: Usual diet Discharge Activity: Increase activity as tolerated Patient Instructions: Depression (DC), Opioid Safety (DC), Preeclampsia and Eclampsia After Delivery (GEN), Hemorrhage (DC), OB Discharge Report, OB Food/Drug Interaction Guide, Opioid Safety, OB Home Care, OB Vaginal Deliveries - [facility], Patient Portal & Nick Instructions, Abnormal Bleeding Discharge Attestations COAT ROOM ATTENDANT Time Spent in Discharge Care*: less than 30 min Coding Level of Care Code Acute Code for Chg Fwd Diagnoses Spontaneous vaginal delivery O80 Anemia D64.9
[2025-02-26 14:42] VITALS: BP 143/87; PULSE 99; RESP 18; TEMP 36.9
--- NOTE | 2025-03-12 13:48 | P.DS_ITS ---
Discharge Providers Date of Admission: 02/24/25 02:50 Date of Discharge: March 12, 2025 Attending Provider at Admission: Cesar Powers MD Attending Provider at Discharge: Cesar Powers MD Primary Care Provider: Rosita Crowell MD Diagnoses at Discharge Discharge Diagnosis 1. Spontaneous vaginal delivery: 2. Preeclampsia: 3. Anemia: Other Information Additional DC diagnoses/information: Pre-delivery diagnoses: 1. Intrauterine at 40.1 weeks gestation2. Severe anemia3. Preeclampsia Post-delivery diagnoses: 1. Intrauterine status post s pontaneous vaginal delivery at 40.1 weeks gestation2. Severe anemia3. Preeclampsia4. Delivery of healthy infant male weighing 8 pounds 6 ounces with Apgars of 7 and 95. Meconium stained fluid Procedure: Spontaneous vaginal delivery Delivering Physician: Joaquín Brock MD Estimated blood loss (mL): 250 Findings: 1. Healthy infant male weighing 8 pound s 6 ounces with Apgars of 7 and 92. Intact placenta with central umbilical cord insertion site. Pre-Delivery Course: Leidy Montes is a 24 year old G2 now P2 s/p spontaneous vaginal delivery at 40.1 weeks gestation by her history. Her was complicated by severe anemia status post transfusion x 2 during this and history of transfusions after prior delivery, now with preeclampsia. The patient began to have contractions at approximately 9 PM on the evening of 02/23/2025. The contractions continued to strengthen and she presented to labor delivery triage early on the morning of 02/24/2025. She was noted to be 5 cm at that time. She had been 2 cm dilated in clinic last week. The patient had been seeing Dr. Padilla in [place], however did not think that she could make it there, so stopped at [facility]. The patient denied any chest pains, shortness of breath, nausea, vomiting, diarrhea, constipation, dysuria, fever, leakage of fluid. The patient had some mild bloody show. The patient denied any gestational diabetes, high blood pressure issues and she states that her GBS was negative. She denies any other complications with other than needing a blood transfusion. She stated that she was having labor issues and was given 2 units of blood a couple months ago. Her hemoglobin was down to 5. She is not able to tolerate any iron by mouth as it makes her throw up. The patient has a history of blood transfusion after her last delivery as well as an iron transfusion. After admission, the patient's blood pressures began to rise up into the 140s to 170s systolic. She did not require any labetalol, however a preeclamptic workup was done and her urine protein creatinine ratio was 3.3. Because of this she was started on magnesium for seizure prophylaxis. The patient was kate every 4 to 6 minutes on her own, however her change was slow overall. In order to augment labor, IV Pitocin was added. The patient began to contract more regularly and made change. She was 9 cm dilated and AROM was performed at 10:57 AM on 02/24/2025. Meconium stained fluid was noted. The patient was complete by 11:26 AM. Delivery: The patient began pushing at 11:26 AM on 02/24/2025. The patient pushed well and the delivered in the OA position at 11:35 AM on 02/24/2025. A nuchal cord was noted but was tight so the was delivered through the cord. The right shoulder was anterior shoulder and it delivered with mild downward pressure. The rest of the infant delivered with maternal pushing. The 's mouth and nose were bulb suction by myself and the infant took breaths immediately upon delivery. The was placed on the mother's chest where the nurses were waiting to care for him. The cord was wrapped around the infant's neck as well as body. The cord was clamped upon itself and cut by the 's father approximately 1 minute after delivery. Cord blood was obtained and the cord was drained of blood. Traction was placed on the umbilical cord and uterine massage was carried out. The placenta delivered without complication and 11:39 AM on 02/24/2025. The placenta was noted to be intact with a central umbilical cord insertion site. IV Pitocin and TXA were given. The cervix was inspected and no lacerations were noted. Uterine massage was carried out. The patient's bleeding was initially moderate and slowed down to mild with this. The vaginal wall was inspected and a few abrasions were noted. They were located on the left upper labia as well as the left lower labia. These were not bleeding and repair was not necessary. Currently both the patient and are doing well. Estimated blood loss was 250 mL. Post-Delivery Status: We will plan to continue with IV magnesium and watch for complications of preeclampsia. Will also watch her bleeding closely and plan for a transfusion if it is heavy or if her hemoglobin drops significantly on checks. Reason for Visit Reason for Visit: ctx 6min Physical Exam Urinary Catheter Management: Rodriguez Latex: Cath Placed During This Visit: yes, but has since been removed by the nurse Reason for Continuing Indwelling Catheter: Decision to DC Catheter Urinary Catheter Date of Insertion: 02/24/25 Urinary Catheter Time of Insertion: 11:50 Date Urinary Catheter Removed: 02/25/25 Time Urinary Catheter Discontinued: 11:50 Discharge Data Studies Completed and Pending Laboratory Results WBC 10.38 10^3/uL (3.29-11.43) 02/25/25 04:50 RBC 3.32 10^6/uL (3.85-5.65) L 02/25/25 04:50 Hgb 6.80 g/dL (11.27-16.99) L 02/25/25 04:50 Hct 23.8 % (36-47) L 02/25/25 04:50 MCV 71.7 fl (85-98) L 02/25/25 04:50 MCH 20.5 pg (27-33) L 02/25/25 04:50 MCHC 28.6 g/dL (30-55) L 02/25/25 04:50 RDW 23.2 % (12.1-15.1) H 02/25/25 04:50 Plt Count 187 10^3/cmm (157-399) 02/25/25 04:50 MPV Not Reportable 02/25/25 04:50 Neut % (Auto) 75.6 % 02/25/25 04:50 Lymph % (Auto) 17.6 % 02/25/25 04:50 [place] % (Auto) 4.6 % 02/25/25 04:50 Eos % (Auto) 1.2 % 02/25/25 04:50 Baso % (Auto) 0.2 % 02/25/25 04:50 Neut # (Auto) 7.85 10^3/uL (1.8-7.7) H 02/25/25 04:50 Lymph # (Auto) 1.8 10^3/uL (0.8-4.8) 02/25/25 04:50 [place] # (Auto) 0.5 10^3/uL (0.2-0.9) 02/25/25 04:50 Eos # (Auto) 0.1 10^3/uL (0.0-0.8) 02/25/25 04:50 Baso # (Auto) 0.0 10^3/uL (0.0-0.1) 02/25/25 04:50 Nucleated RBC % (auto) 0.8 % 02/25/25 04:50 Nucleated RBCs # 0.1 /100WBC 02/25/25 04:50 Sodium 138 mmol/L (136-145) 02/24/25 08:55 Potassium 3.8 mmol/L (3.5-5.1) 02/24/25 08:55 Chloride 106 mmol/L (98-107) 02/24/25 08:55 Carbon Dioxide 18 mmol/L (22-29) L 02/24/25 08:55 Anion Gap 17.8 (5-19) 02/24/25 08:55 BUN 7 mg/dL (6-20) 02/24/25 08:55 Creatinine 0.5 mg/dL (0.5-0.9) 02/24/25 08:55 GFR Calculation 151.6 mL/min (90-130) H 02/24/25 08:55 Glucose 86 mg/dL (65-115) 02/24/25 08:55 Calculated Osmolality 283 mOsm/kg (285-295) L 02/24/25 08:55 Uric Acid 6.3 mg/dL (2.4-5.7) H 02/24/25 08:55 Calcium 8.3 mg/dL (8.5-10.5) L 02/24/25 08:55 Magnesium 6.0 mg/dL (5.0-7.5) 02/25/25 04:50 Total Bilirubin 0.3 mg/dL (0.15-1.2) 02/24/25 08:55 AST 12 U/L (0-32) 02/24/25 08:55 ALT 7 U/L (0-33) 02/24/25 08:55 Alkaline Phosphatase 152 U/L (35-105) H 02/24/25 08:55 Total Protein 5.8 g/dL (6.6-8.7) L 02/24/25 08:55 Albumin 3.0 g/dL (3.5-5.2) L 02/24/25 08:55 Globulin 2.8 g/dL (1.3-4.6) 02/24/25 08:55 U Random Total Protein 520 mg/dL 02/24/25 09:00 Urine Creatinine 157 mg/dL (28-217) 02/24/25 09:00 Protein/Creatinin Ratio 3.31 mg/mg CR 02/24/25 09:00 Urine Opiates Screen Negative ng/mL (Negative) 02/24/25 02:13 Ur Barbiturates Screen Negative ng/mL (Negative) 02/24/25 02:13 Ur Phencyclidine Scrn Negative ng/mL (Negative) 02/24/25 02:13 Ur Amphetamines Screen Negative ng/mL (Negative) 02/24/25 02:13 U Benzodiazepines Scrn Negative ng/mL (Negative) 02/24/25 02:13 Urine Cocaine Screen Negative ng/mL (Negative) 02/24/25 02:13 U Marijuana (THC) Screen Negative ng/mL (Negative) 02/24/25 02:13 Blood Type O Positive 02/24/25 03:00 Rho(D) Type Rh positive 02/24/25 03:00 Antibody Screen Positive 02/24/25 03:00 Antibody Identification Anti-C 02/24/25 03:00 Antigen Identification C Antigen - NEGATIVE 02/24/25 03:00 Crossmatch See Detail 02/24/25 03:00 Vitals Last Vital Signs Temp 98.4 F 02/26/25 14:42 Pulse 99 02/26/25 14:42 Resp 18 02/26/25 14:42 BP 143/87 02/26/25 14:42 Pulse Ox 98 02/26/25 04:57 O2 Del Method Room Air 02/26/25 04:57 Discharge Plan Discharge Patient Disposition: Home Condition: Stable Discharge Order = DC NOW: Discharge Order (Routine); Ordered 02/26/25 Ordered By: Cesar Powers Referrals: Anthony Hall MD [Physician, [employer]] - 04/08/25 12:45 pm Discharge Diet: Usual diet Discharge Activity: Increase activity as tolerated Patient Instructions: Depression (DC), Opioid Safety (DC), Preeclampsia and Eclampsia After Delivery (GEN), Hemorrhage (DC), OB Discharge Report, OB Food/Drug Interaction Guide, Opioid Safety, OB Home Care, OB Vaginal Deliveries - [facility], Patient Portal & Nick Instructions, Abnormal Bleeding Coding Level of Care Code Acute Code for Chg Fwd Diagnoses Spontaneous vaginal delivery O80 Preeclampsia O14.90 Anemia D64.9
== END 2025-02-26 14:50 | disposition home or self-care (01) | DRG 560 ==
LOC: OPOB 05:04 → OBGYN 05:04
PROVIDERS: Family Medicine; Admitting Provider Obstetrics & Gynecology; PCP Family Medicine; Visit Provider Obstetrics & Gynecology
DX: O48.0 Post-term pregnancy (principal); Z37.0 Single live birth; Z3A.40 40 weeks gestation of pregnancy; O14.94 Unspecified pre-eclampsia, complicating childbirth; O99.02 Anemia complicating childbirth; D64.9 Anemia, unspecified; O77.0 Labor and delivery complicated by meconium in amniotic fluid; O69.81X0 Labor and delivery complicated by cord around neck, without compression, not applicable or unspecified; K21.9 Gastro-esophageal reflux disease without esophagitis; O99.62 Diseases of the digestive system complicating childbirth
CPT/HCPCS: 36415; 36430; 51702; 59025; 59409; 80053; 80306; 80503; 82570; 83735; 84156; 84550; 85025; 85027; 86850; 86870; 86900; 86902; 86920; 96374; 96376; 99211; J1756; J2590; J2795; J3010; J3475; J7030; J7121; J9999; P9016